=== PATIENT | male | born 1930 | race Hispanic/Latino ===

== ENCOUNTER 2018-03-22 13:21 | Emergency (ER) | payer MEDICARE, SELFPAY ==
[2018-03-22 13:29] VITALS: BP 125/60; PULSE 62; TEMP 97.4; O2SAT 99
[2018-03-22 13:33] VITALS: BMI 19.7
[2018-03-22] MEDS ORDERED: TDAP Vaccine 0.5 mL Syr IM ONE (14:19)
--- NOTE | 2018-03-22 14:25 | ED PDOC ---
Arrival/HPI - General Chief Complaint: Trauma Time Seen by Provider: 03/22/18 14:18 Historian: Patient - History of Present Illness Narrative History of Present Illness (Text): 03/22/18 14:18 This 87 yo male with pmh hypothyroidism, htn, dm, presents to this ED for head trauma evaluation x [employer]ELOP[employer]IST. Patient stated he was watering his plants at home, when he tripped and fell down. Patient stated he hit his head. Patient denies LOC, dizziness, syncope, sob, cp, abdominal pain, neck pain, or abnormal gait. Last tetanus is UKN. Time/Duration: Other (see hpi) Context: Home Past Medical History - Provider Review Nursing Documentation Reviewed: Yes - Infectious Disease Hx of Infectious Diseases: None - Tetanus Immunization Tetanus Immunization: Up to Date - Cardiac Hx Hypertension: Yes Hx Pacemaker: No - Pulmonary Hx Respiratory Disorders: No - Neurological Hx Paralysis: No - HEENT Hx HEENT Disorder: No - Renal Hx Renal Disorder: No - Endocrine/Metabolic Hx Endocrine Disorders: No Hx Diabetes Mellitus Type 2: Yes - Hematological/Oncological Hx Blood Disorders: No - Integumentary Hx Dermatological Disorder: No - Musculoskeletal/Rheumatological Hx Musculoskeletal Disorders: No - Gastrointestinal Hx Gastrointestinal Disorders: No - Genitourinary/Gynecological Hx Genitourinary Disorders: No - Psychiatric Hx Depression: No Hx Emotional Abuse: No Hx Physical Abuse: No Hx Substance Use: No - Surgical History Hx Inguinal Hernia Repair: Yes - Anesthesia Hx Anesthesia Reactions: No - Suicidal Assessment Feels Threatened In Home Enviroment: No Family/Social History - Physician Review Nursing Documentation Reviewed: Yes Family/Social History: Other (noncontributory) Smoking Status: Former Smoker Hx Alcohol Use: Yes (wine in evening) Frequency of alcohol use: Daily Hx Substance Use: No Hx Substance Use Treatment: No Allergies/Home Meds Allergies/Adverse Reactions: Allergies No Known Allergies Allergy (Verified 03/22/18 13:32) Home Medications: Home Meds Medication Instructions Recorded Confirmed Amlodipine Besylate 5 mg PO DAILY 02/06/13 08/02/16 Cyanocobalamin (Vitamin B-12) 5,000 mcg SL DAILY 02/06/13 08/02/16 [Vitamin B-12] Lisinopril 10 mg PO DAILY 02/06/13 08/02/16 Tamsulosin Hydrochloride 0.4 mg PO DAILY 02/06/13 08/02/16 Levothyroxine [Synthroid] 25 mcg PO DAILY 08/02/16 08/02/16 metFORMIN [glucOPHAGE] 500 mg PO BID 08/02/16 08/02/16 Review of Systems - Review of Systems Constitutional: Normal. absent: Fatigue, Weight Change, Fevers Eyes: Normal ENT: Normal Respiratory: Normal. absent: SOB Cardiovascular: Normal. absent: Chest Pain, Palpitations Gastrointestinal: Normal. absent: Abdominal Pain, Nausea, Vomiting Genitourinary Male: Normal Musculoskeletal: Normal. absent: Back Pain, Neck Pain Skin: Other (left scalp abrasion) Neurological: Normal Endocrine: Normal Hemo/Lymphatic: Normal Psychiatric: Normal Physical Exam Vital Signs Temp Pulse Resp BP Pulse Ox 03/22/18 15:22 19 99 03/22/18 13:28 97.4 F L 62 18 125/60 99 Temperature: Afebrile Blood Pressure: Normal Pulse: Regular Respiratory Rate: Normal Appearance: Positive for: Well-Appearing, Non-Toxic, Comfortable Pain Distress: None Mental Status: Positive for: Alert and Oriented X 3 - Systems Exam Head: Present: Normocephalic, Abrasion (Left parietal scalp abrasion), Other ( no raccoon sign. no turk sign) Pupils: Present: PERRL, Other (no hyphema) Extroacular Muscles: Present: EOMI. No: Entrapment Conjunctiva: Present: Normal Ears: Present: Normal, NORMAL TM, Other (no hemotympanum) Mouth: Present: Moist Mucous Membranes Pharnyx: Present: Normal. No: ERYTHEMA, EXUDATE, TONSILS ENLARGED Nose (External): Present: Atraumatic Nose (Internal): Present: Normal Inspection, No Active Bleeding. No: Septal Hematoma Neck: Present: Normal Range of Motion, Trachea Midline. No: Meningeal Signs, MIDLINE TENDERNESS, Paraspinal Tenderness Respiratory/Chest: Present: Clear to Auscultation, Good Air Exchange. No: Respiratory Distress, Accessory Muscle Use Cardiovascular: Present: Regular Rate and Rhythm, Normal S1, S2. No: Murmurs Abdomen: No: Tenderness, Distention, Peritoneal Signs, Rebound, Guarding Back: Present: Normal Inspection. No: CVA Tenderness, Midline Tenderness Upper Extremity: Present: Normal Inspection, Normal ROM. No: Cyanosis, Edema Lower Extremity: Present: Normal Inspection, Normal ROM. No: Edema Neurological: Present: GCS=15, CN II-XII Intact, Speech Normal, Motor Func Grossly Intact, Normal Sensory Function, Normal Cerebellar Funct, Gait Normal, Memory Normal, Other (no neuro focal deficts) Skin: Present: Warm, Dry, Normal Color. No: Rashes Psychiatric: Present: Alert, Oriented x 3, Normal Insight, Normal Concentration Medical Decision Making ED Course and Treatment: 03/22/18 14:[address] Patient [address] to have [address] head done. He said he did not faint. He said he feels fine, has a normal gait and speech. Denies VILLEGAS, or neuro focal deficits. He wants to leave AMA. Leaving Against Medical Advice (AMA): This patient is choosing to leave against medical advice. The EP has personally explained to the pt that choosing to do so may result in permanent bodily harm or . The EP discussed at great length that without further evaluation and monitoring there may be unforeseen circumstances and/or deterioration causing permanent bodily harm or as a result of their choice. The pt verbalized these risks back to the physician in laymans terms. The pt is alert, oriented, and shows the mental capacity to make clear decisions regarding the pts health care at this time. The pt continues to wish to leave again medical advice. In light of the pts decision to leave AMA, follow-up has been recommended and the pt is aware of the importance of following up as instructed. The pt has been advised that they should return to the ED immediately if they change their mind at any time, or if thier condition begins to change or worsen in any way. Re-evaluation Time: 14:55 Reassessment Condition: Re-examined, Unchanged - Medication Orders Current Medication Orders: Discontinued Medications Tetanus/Reduced Diphtheria/Acell Pertussis (Boostrix Vaccine Inj) 0.5 ml IM .ONCE ONE Stop: 03/22/18 14:20 Last Admin: 03/22/18 14:23 Dose: 0.5 ml Immunization Registry Document 03/22/18 14:23 [email or web address] (Rec: 03/22/18 14:23 [email or web address] [id number]) Immunization Registry Consent Date 03/22/18 Disposition/Present on Arrival - Present on Arrival Any Indicators Present on Arrival: No History of DVT/PE: No History of Uncontrolled Diabetes: No Urinary Catheter: No History of Decub. Ulcer: No History Surgical Site Infection Following: None - Disposition Have Diagnosis and Disposition been Completed?: Yes Diagnosis: Scalp abrasion, Acute head trauma Disposition: AGAINST MEDICAL ADVICE Disposition Time: 14:56 Condition: UNKNOWN Additional Instructions: Call private doctor for follow up visit in 1-2 days. take antibiotic as instructed. Return to emergency if new symptoms develop or current symptoms worsen. clean head abrasion with soap and water daily and apply Neosporin ointment. Prescriptions: Cephalexin [Keflex] 500 mg PO QID #20 capsule Referrals: Amor Chery JD, MD [Family Provider] - Follow up with primary Forms: [employer] (Montenegrin)
[2018-03-22 15:24] VITALS: RESP 19
== END 2018-03-22 15:24 | disposition left against medical advice (07) ==
LOC: ED 13:21
DX: S00.01XA Abrasion of scalp, initial encounter (principal); W01.0XXA Fall on same level from slipping, tripping and stumbling without subsequent striking against object, initial encounter; Y93.E9 Activity, other interior property and clothing maintenance; Y92.009 Unspecified place in unspecified non-institutional (private) residence as the place of occurrence of the external cause; Z23 Encounter for immunization

== ENCOUNTER 2018-08-02 21:39 | Inpatient (IN) | payer MEDICARE ==
[2018-08-02 21:52] VITALS: BMI 20.9
[2018-08-02] MEDS ORDERED: Sodium Chloride 0.9% 1,000 ML IV STA ×2 (22:18→22:48)
--- NOTE | 2018-08-02 22:20 | ED PDOC ---
Arrival/HPI - General Chief Complaint: Weakness/Neurological Deficit Time Seen by Provider: 08/02/18 21:41 Historian: Patient - History of Present Illness Narrative History of Present Illness (Text): 08/02/18 22:17 88 year old male, whose past medical history includes hyperlipidemia, hypertension, diabetes, and a hx of daily drinking, who presents to the Emergency department complaining of general weakness. Patient notes difficulty walking. Patient denies intoxication, trauma, injury, chets pain, shortness of breath dizziness, or any other complaints. Time/Duration: Prior to Arrival Symptom Onset: Gradual Symptom Course: Unchanged Activities at Onset: Light Context: Home Past Medical History - Provider Review Nursing Documentation Reviewed: Yes - Infectious Disease Hx of Infectious Diseases: None - Tetanus Immunization Tetanus Immunization: Up to Date - Cardiac Hx Hypertension: Yes Hx Pacemaker: No - Pulmonary Hx Respiratory Disorders: No - Neurological Hx Paralysis: No - HEENT Hx HEENT Disorder: No - Renal Hx Renal Disorder: No - Endocrine/Metabolic Hx Endocrine Disorders: No Hx Diabetes Mellitus Type 2: Yes - Hematological/Oncological Hx Blood Disorders: No - Integumentary Hx Dermatological Disorder: No - Musculoskeletal/Rheumatological Hx Musculoskeletal Disorders: No - Gastrointestinal Hx Gastrointestinal Disorders: No - Genitourinary/Gynecological Hx Genitourinary Disorders: No - Psychiatric Hx Depression: No Hx Emotional Abuse: No Hx Physical Abuse: No Hx Substance Use: No - Surgical History Hx Inguinal Hernia Repair: Yes - Anesthesia Hx Anesthesia Reactions: No - Suicidal Assessment Feels Threatened In Home Enviroment: No Family/Social History - Physician Review Nursing Documentation Reviewed: Yes Family/Social History: Unknown Family HX Smoking Status: Former Smoker Hx Alcohol Use: Yes (wine in evening) Frequency of alcohol use: Few days per week Hx Substance Use: No Hx Substance Use Treatment: No Allergies/Home Meds Allergies/Adverse Reactions: Allergies No Known Allergies Allergy (Verified 03/22/18 13:32) Home Medications: Home Meds Medication Instructions Recorded Confirmed Amlodipine Besylate 5 mg PO DAILY 02/06/13 08/02/16 Cyanocobalamin (Vitamin B-12) 5,000 mcg SL DAILY 02/06/13 08/02/16 [Vitamin B-12] Lisinopril 10 mg PO DAILY 02/06/13 08/02/16 Tamsulosin Hydrochloride 0.4 mg PO DAILY 02/06/13 08/02/16 Levothyroxine [Synthroid] 25 mcg PO DAILY 08/02/16 08/02/16 metFORMIN [glucOPHAGE] 500 mg PO BID 08/02/16 08/02/16 Review of Systems - Physician Review All systems were reviewed & negative as marked: Yes - Review of Systems Constitutional: Fatigue Eyes: Normal ENT: Normal Respiratory: Normal. absent: SOB, Cough Cardiovascular: Normal. absent: Chest Pain Gastrointestinal: Normal. absent: Abdominal Pain Genitourinary Male: Normal. absent: Dysuria, Frequency Musculoskeletal: Normal. absent: Back Pain, Neck Pain Skin: Normal. absent: Rash Neurological: Normal. absent: Headache, Dizziness Endocrine: Normal Hemo/Lymphatic: Normal Psychiatric: Normal Physical Exam Vital Signs Temp Pulse Resp BP Pulse Ox 08/02/18 22:23 99.9 F H 119 H 18 141/87 95 - Systems Exam Head: Present: Atraumatic, Normocephalic Pupils: Present: PERRL Extroacular Muscles: Present: EOMI Conjunctiva: Present: Normal Mouth: Present: Moist Mucous Membranes Neck: Present: Normal Range of Motion Respiratory/Chest: Present: Clear to Auscultation, Good Air Exchange. No: Respiratory Distress, Accessory Muscle Use Cardiovascular: Present: Regular Rate and Rhythm, Normal S1, S2. No: Murmurs Abdomen: No: Tenderness, Distention, Peritoneal Signs Back: Present: Normal Inspection Upper Extremity: Present: Normal Inspection. No: Cyanosis, Edema Lower Extremity: Present: Normal Inspection. No: Edema Neurological: Present: GCS=15, CN II-XII Intact, Speech Normal Skin: Present: Warm, Dry, Normal Color. No: Rashes Psychiatric: Present: Alert, Oriented x 3, Normal Insight, Normal Concentration Medical Decision Making ED Course and Treatment: 08/02/18 22:20 Impression: 88 year old female presents to the emergency department complaining of general weakness. Plan: -- Labs -- EKG -- CXR -- IV fluids -- Troponin -- Reassess and disposition Progress Notes: 08/02/18 22:[address] Abraham elam labs, ekg, cxr and reassess for disposition. - RAD Interpretation Radiology Orders: 08/02/18 22:18 CHEST PORTABLE [RAD] Stat - Medication Orders Current Medication Orders: Sodium Chloride (Sodium Chloride 0.9%) 1,000 mls @ 999 mls/hr IV .Q1H1M STA Stop: 08/02/18 23:18 - Scribe Statement The provider has reviewed the documentation as recorded by the Scribsyd Patrick All medical record entries made by the Scribe were at my direction and personally dictated by me. I have reviewed the chart and agree that the record accurately reflects my personal performance of the history, physical exam, medical decision making, and the department course for this patient. I have also personally directed, reviewed, and agree with the discharge instructions and disposition. Disposition/Present on Arrival - Present on Arrival Any Indicators Present on Arrival: No History of DVT/PE: No History of Uncontrolled Diabetes: No Urinary Catheter: No History of Decub. Ulcer: No History Surgical Site Infection Following: None - Disposition Have Diagnosis and Disposition been Completed?: No Diagnosis: Generalized weakness, Diabetes Disposition Time: 22:36 Condition: GOOD Discharge Instructions (ExitCare): Weakness (ED) Forms: [employer] (Spanish)
[2018-08-02 22:45] LABS: BASO # 0.01 K/mm3 (0.0-2.0); BASO % 0.1 % (0.0-3.0); EOS % 0.2 % (1.5-5.0); GRAN # 8.79 (1.4-6.5); GRAN % 89.9 % (50.0-68.0); LYMPH # 0.7 (1.2-3.4); LYMPH % 6.8 % (22.0-35.0); MEAN CELL VOLUME 87.2 fl (80.0-105.0); MEAN CORPUSCULAR HEMOGLOBIN 29.7 pg (25.0-35.0); MEAN PLATELET VOLUME 9.5 fl (7.0-11.0); MONO # 0.3 (0.1-0.6); RBC 3.37 10^6/uL (3.5-6.1); RED CELL DISTRIBUTION WIDTH 15.1 % (11.5-14.5); VENOUS BLOOD GAS BASE EXCESS 4.7 mmol/L (0.0-2.0); VENOUS BLOOD GAS PO2 43 mm/Hg (30-55); VENOUS BLOOD PH 7.45 (7.32-7.43); WHITE BLOOD COUNT 9.8 10^3/ul (4.5-11.0)
[2018-08-02 22:55] LABS: ALBUMIN 4.2 g/dL (3.0-4.8); ALT/SGPT 20 U/L (7-56); AST/SGOT 37 U/L (17-59); BLOOD UREA NITROGEN 20 mg/dL (7-21); CALCIUM 9.5 mg/dL (8.4-10.5); GFR NON-AFRICAN AMERICAN > 60
[2018-08-02 23:06] LABS: TROPONIN I 0.02 ng/mL
--- NOTE | 2018-08-02 23:09 | ED PDOC ---
Physical Exam Vital Signs Reviewed: Yes Vital Signs Temp Pulse Resp BP Pulse Ox 08/03/18 00:16 102 F H 08/03/18 00:02 102 F H 08/03/18 00:01 112 H 132/50 L 08/02/18 22:23 99.9 F H 119 H 18 141/87 95 Temperature: Febrile Blood Pressure: Normal Pulse: Tachycardic Respiratory Rate: Normal Appearance: Positive for: Well-Appearing, Non-Toxic, Comfortable Pain Distress: None Mental Status: Positive for: Alert and Oriented X 3 - Systems Exam Head: Present: Atraumatic, Normocephalic Pupils: Present: PERRL Extroacular Muscles: Present: EOMI Conjunctiva: Present: Normal Mouth: Present: Moist Mucous Membranes Neck: Present: Normal Range of Motion Respiratory/Chest: Present: Clear to Auscultation, Good Air Exchange. No: Respiratory Distress, Accessory Muscle Use Cardiovascular: Present: Regular Rate and Rhythm, Normal S1, S2. No: Murmurs Abdomen: No: Tenderness, Distention, Peritoneal Signs Back: Present: Normal Inspection Upper Extremity: Present: Normal Inspection. No: Cyanosis, Edema Lower Extremity: Present: Normal Inspection. No: Edema Neurological: Present: GCS=15, CN II-XII Intact, Speech Normal Skin: Present: Warm, Dry, Normal Color. No: Rashes Psychiatric: Present: Alert, Oriented x 3, Normal Insight, Normal Concentration Medical Decision Making ED Course and Treatment: 08/02/18 23:08 Case endorsed to me by Dr. Crabtree, pending labs, ekg, Chest X-ray, and disposition. Patient presents to the emergency department complaining of general weakness today. EKG reviewed, shows atrial fibrillation at 117 bpm with rapid ventricular response. Left axis deviation. 08/03/18 00:44 Chest X-ray reviewed, shows no acute processes. 08/03/18 01:[address] Chery, who is aware and agrees with plan. Requests admission to Dr. Jimenez. Case discussed with Dr. Jimenez, who accepts pt to her service for new onset of atrial fibrillation and fever. Requests consult with Dr. Ayala and Dr. Alexander. - Lab Interpretations Lab Results: 08/02/18 22:42 08/02/18 22:42 Lab Results 08/02/18 23:00: PT 12.4, INR 1.09, APTT 33.1 08/02/18 22:42: pO2 43, VBG pH 7.45 H, VBG pCO2 42.0, VBG HCO3 29.2 H, VBG Total CO2 30.5 H, VBG O2 Sat (Calc) 85.3 H, VBG Base Excess 4.7 H, VBG Potassium 4.6, Sodium 126.0 L, Chloride 92.0 L, Glucose 210 H, Lactate 1.1, FiO2 21.0, Venous Blood Potassium 4.6 08/02/18 22:42: Alcohol, Quantitative < 10 08/02/18 22:42: Sodium 128 L, Chloride 88 L, Potassium 4.6, Carbon Dioxide 25, Anion Gap 19, BUN 20, Creatinine 0.8, Est GFR ( Amer) > 60, Est GFR (Non- Af Amer) > 60, Random Glucose 193 H, Calcium 9.5, Total Bilirubin 0.6, AST 37, ALT 20, Alkaline Phosphatase 153 H, Troponin I 0.02 D, Total Protein 8.2, Albumin 4.2, Globulin 4.0, Albumin/Globulin Ratio 1.0 L 08/02/18 22:42: WBC 9.8 D, RBC 3.37 L, Hgb 10.0 L, Hct 29.4 L, MCV 87.2, MCH 29.7, MCHC 34.0, RDW 15.1 H, Plt Count 223, MPV 9.5, Gran % 89.9 H, Lymph % ( Auto) 6.8 L, [place] % (Auto) 3.0, Eos % (Auto) 0.2 L, Baso % (Auto) 0.1, Gran # 8.79 H, Lymph # (Auto) 0.7 L, [place] # (Auto) 0.3, Eos # (Auto) 0.0, Baso # (Auto ) 0.01 08/02/18 22:40: Urine Color Light yellow, Urine Appearance Clear, Urine pH 7.0, Ur Specific [place] 1.010, Urine Protein Trace H, Urine Glucose (UA) Negative, Urine Ketones Negative, Urine Blood Negative, Urine Nitrate Negative, Urine Bilirubin Negative, Urine Urobilinogen 0.2, Ur Leukocyte Esterase Negative, Urine RBC Pending, Urine WBC Pending - RAD Interpretation Radiology Orders: 08/02/18 22:18 CHEST PORTABLE [RAD] Stat - Medication Orders Current Medication Orders: Ceftriaxone Sodium (Rocephin 1 Gram Ivpb) 1 gm in 100 mls @ 200 mls/hr IV ONCE STA PRN Reason: Protocol Stop: 08/03/18 01:23 Discontinued Medications Acetaminophen (Tylenol 325mg Tab) 650 mg PO STAT STA Stop: 08/03/18 00:10 Last Admin: 08/03/18 00:16 Dose: 650 mg MAR Pain/Vitals Document 08/03/18 00:16 IT (Rec: 08/03/18 00:16 IT [id number]) Vitals Temperature (97.6 F-99.6 F) 102 F Diltiazem HCl (Cardizem) 10 mg IVP STAT STA Stop: 08/02/18 22:49 Last Admin: 08/03/18 00:01 Dose: 10 mg IVP Administration Document 08/03/18 00:01 IT (Rec: 08/03/18 00:01 IT [id number]) Charges for Administration # of IVP Administrations 1 MAR Pulse and Blood Pressure Document 08/03/18 00:01 IT (Rec: 08/03/18 00:01 IT [id number]) Pulse Pulse Rate (60-90 beats/min) 112 Blood Pressure Blood Pressure (100/60-150/90 mm Hg) 132/50 Enoxaparin Sodium (Lovenox) 60 mg SC STAT STA PRN Reason: Protocol Stop: 08/03/18 01:01 Sodium Chloride (Sodium Chloride 0.9%) 1,000 mls @ 999 mls/hr IV .Q1H1M STA Stop: 08/02/18 23:18 Last Admin: 08/03/18 00:01 Dose: 999 mls/hr eMAR Start Stop Document 08/03/18 00:01 IT (Rec: 08/03/18 00:01 IT [id number]) Intravenous Solution Start Date 08/03/18 Start Time 00:01 Sodium Chloride (Sodium Chloride 0.9%) 1,000 mls @ 999 mls/hr IV .Q1H1M STA Stop: 08/02/18 23:48 - Scribe Statement The provider has reviewed the documentation as recorded by the Scribsyd Patrick All medical record entries made by the Scribe were at my direction and personally dictated by me. I have reviewed the chart and agree that the record accurately reflects my personal performance of the history, physical exam, medical decision making, and the department course for this patient. I have also personally directed, reviewed, and agree with the discharge instructions and disposition. Disposition/Present on Arrival - Present on Arrival Any Indicators Present on Arrival: No History of DVT/PE: No History of Uncontrolled Diabetes: No Urinary Catheter: No History of Decub. Ulcer: No History Surgical Site Infection Following: None - Disposition Have Diagnosis and Disposition been Completed?: Yes Diagnosis: Generalized weakness, New onset atrial fibrillation, Fever Disposition: HOSPITALIZED Disposition Time: 01:08 Patient Problems: Current Active Problems Problem Status Onset Fever Acute Generalized weakness Acute New onset atrial fibrillation Acute Condition: GOOD Discharge Instructions (ExitCare): Weakness (ED) Forms: [facility] [employer] (French)
[2018-08-03 00:04] LABS: INR 1.09; PARTIAL THROMBOPLASTIN TIME 33.1 Seconds (25.1-36.5); PROTHROMBIN TIME 12.4 SECONDS (9.4-12.5)
[2018-08-03 00:50] LABS: URINE APPEARANCE CLEAR (CLEAR); URINE BILIRUBIN NEGATIVE (NEGATIVE); URINE BLOOD NEGATIVE (NEGATIVE); URINE COLOR LIGHT YELLOW (YELLOW); URINE GLUCOSE (UA) NEGATIVE (NEGATIVE); URINE LEUKOCYTE ESTERASE NEGATIVE Leu/uL (NEGATIVE); URINE PROTEIN TRACE mg/dL (<30 mg/dL); URINE UROBILINOGEN 0.2 E.U./dL (<1 E.U./dL)
[2018-08-03] MEDS ORDERED: cefTRIAXone 1 gm 1 GM/100 ML BAG IV STA (00:54)
[2018-08-03] MEDS ORDERED: Enoxaparin 60 mg Syringe SC STA (01:00)
[2018-08-03 01:20] LABS: URINE BACTERIA FEW (NEG); URINE RBC 0 - 2 /hpf (0-2); URINE WBC 0 - 2 /hpf (0-6)
[2018-08-03] MEDS ORDERED: Levothyroxine 25 MCG TAB PO SCH (08:32)
--- NOTE | 2018-08-03 09:34 | CARD ---
APPROVED REPORT Date of service: 08/02/2018 EKG Measurement Heart [id number] <Conclusion> Atrial fibrillation with rapid ventricular response Left axis deviation Anteroseptal infarct, age undetermined Abnormal ECG
--- NOTE | 2018-08-03 10:45 | RAD ---
Date of service: 08/02/2018 HISTORY: generalized weakness COMPARISON: 08/02/2016 FINDINGS: LUNGS: No active pulmonary disease. PLEURA: No significant pleural effusion identified, no pneumothorax apparent. CARDIOVASCULAR: Normal. OSSEOUS STRUCTURES: No significant abnormalities. VISUALIZED UPPER ABDOMEN: Normal. OTHER FINDINGS: None. IMPRESSION: No active disease.
[2018-08-03] MEDS: POLYETHYLENE GLYCOL 3350 17 GM/Dose PACKET PO SCH (11:01)
[2018-08-03] MEDS: Piperacillin/Tazobact 3.375 gm 100 ML IVPB SCH ×4 (11:09→23:24)
[2018-08-03] MEDS: Levothyroxine 25 MCG TAB PO SCH (11:12)
[2018-08-03] MEDS ORDERED: Iohexol 240 (50 ml) ONE (11:41)
[2018-08-03] MEDS: levoFLOXacin 750 mg in D5W 150 ML BAG IVPB SCH (11:56)
[2018-08-03] MEDS: Insulin Reg-LOW-Coverage SC SCH ×3 (12:20→21:47)
--- NOTE | 2018-08-03 15:27 | CON ---
DATE: 08/03/2018 LOCATION: The patient is seen earlier today in 270. CHIEF COMPLAINT: The patient is complaining of weakness times several days. HISTORY OF PRESENT ILLNESS: This is an 88-year-old male, who is obviously confused and was admitted through the emergency room with diagnosis of atrial fibrillation. The patient has a past medical history of hyperlipidemia, hypertension, diabetes, admitted with weakness times several days. In the emergency room chart states the patient had denied any intoxication, trauma, injury, chest pain, shortness of breath, dizziness or any other complaints, however. REVIEW OF SYSTEMS: A 12-point review of systems is performed based on the patient's information, nursing chart is available to us. PAST MEDICAL HISTORY: Significant for hypertension, hyperlipidemia, diabetes mellitus, anxiety, alcohol abuse, ex-smoker. PAST SURGICAL HISTORY: Significant for hernia surgery. ALLERGIES: THE PATIENT HAS NO KNOWN ALLERGIES. MEDICATIONS AT HOME: Include metformin and Synthroid. PHYSICAL EXAMINATION: GENERAL: On exam, the patient is in bed, appearing chronically ill, debilitated and weak. VITAL SIGNS: Temperature of 98, T-max is 102; respiratory rate of 16, it was up to 20; heart rate of 89, it was up to 119; blood pressure is 128/60, it was down to 99/50. Saturating at O2 saturation at 95% on room air. HEENT; Examination of HEENT is unremarkable. NECK: Supple. LUNGS: Have decreased breath sounds. HEART: Normal S1, S2. ABDOMEN: Soft, nontender. No organomegaly. No rebound. No guarding. No masses. LABORATORY DATA: Laboratory examination reveals the white count is 9.8, hemoglobin of 10, platelets of 223 Chemistries reveals a BUN of 20, creatinine of 0.8, alk phos is 153, sodium is 128. Urinalysis is unremarkable. Alcohol level is undetectable. Microbiology is pending. The patient had a chest x-ray. No results are available. Review of chest x-ray appears to be unremarkable. The patient had an EKG with atrial fibrillation, rapid ventricular response, left axis deviation, anterior septal infarct and QTc of 443. ASSESSMENT AND PLAN: An 88-year-old male seen earlier today in 270, bed 2 with hyperlipidemia, hypertension, diabetes, anxiety with a temperature of 102, heart rate of 119, unremarkable urinalysis and chest x-ray. #1 is systemic inflammatory response syndrome. The patient does have elevated alkaline phosphatase, elevated random glucose with essentially unremarkable urinalysis. Must rule out gastrointestinal pathology. We will order a CAT scan of the abdomen and pelvis. We will request Dr. Roque on pulmonary consult. We will also order Zosyn and Levaquin. We will order urine for Legionella antigen, blood cultures, urine cultures and sputum cultures, an ultrasound of the common bile duct. Pending panculture results. We will follow closely with you. We will request Dr. Roque on consult. The patient has systemic inflammatory response syndrome, source not clear. Must rule out gastrointestinal pathology versus the lung. we will check on the chest x-ray. We will discuss with Dr. Roque. We will order a CAT scan of the abdomen and pelvis. We will treat with Zosyn and Levaquin. Corey Alexander MD
--- NOTE | 2018-08-03 16:04 | CT ---
Date of service: 08/03/2018 PROCEDURE: CT Abdomen and Pelvis without intravenous contrast HISTORY: gb ds COMPARISON: None. TECHNIQUE: Without contrast.. Contrast dose: Radiation dose: Total exam DLP = 405 mGy-cm. This CT exam was performed using one or more of the following dose reduction techniques: Automated exposure control, adjustment of the mA and/or kV according to patient size, and/or use of iterative reconstruction technique. FINDINGS: LOWER THORAX: There is an infiltrate in the left lower lobe suspicious for pneumonia. LIVER: Unremarkable. No gross lesion or ductal dilatation. GALLBLADDER AND BILE DUCTS: Unremarkable. PANCREAS: Unremarkable. No gross lesion or ductal dilatation. SPLEEN: Unremarkable. ADRENALS: Unremarkable. No mass. KIDNEYS AND URETERS: Unremarkable. No hydronephrosis. No solid mass. VASCULATURE: Unremarkable. No aortic aneurysm. BOWEL: Unremarkable. No obstruction. No gross mural thickening. Mild diverticulosis of the sigmoid colon APPENDIX: Unremarkable. Normal appendix. PERITONEUM: Unremarkable. No free fluid. No free air. LYMPH NODES: Unremarkable. No enlarged lymph nodes. BLADDER: Unremarkable. REPRODUCTIVE: Unremarkable. BONES: No acute fracture. OTHER FINDINGS: None. IMPRESSION: Left lower lobe infiltrate suspicious for pneumonia. No acute intra-abdominal findings
--- NOTE | 2018-08-03 19:39 | CON ---
DATE: 08/03/2018 PULMONARY CONSULTATION REFERRING PHYSICIAN: Kellee Jimenez MD REASON FOR CONSULTATION: Cough, shortness of breath, chronic lung disease. HISTORY OF PRESENT ILLNESS: This is an 88-year-old gentleman with past medical history significant for hypertension, hyperlipidemia, diabetes, history of alcohol abuse, chronic obstructive lung disease, anxiety disorder, brought in the emergency room with leg erythema, multiple skin breakdowns, also has some chest pain and short of breath, been having cough with discolored sputum production. No hemoptysis, hematemesis, hematuria. No diarrhea reported. PAST MEDICAL HISTORY: As per history present illness. ALLERGIES: None known. SOCIAL HISTORY: Ex-smoker, has a history of excessive alcohol use. FAMILY HISTORY: No significant cardiopulmonary disease reported. MEDICATIONS: He is on Colace 100 mg twice a day, Flomax 0.4 mg daily, metformin 100 mg twice a day, insulin coverage, Levaquin 750 mg daily, MiraLax 17 g daily, Norvasc 5 mg daily, Synthroid 25 mcg daily, Zestril 10 mg daily, Zosyn 3.375 g every 6 hours. REVIEW OF SYSTEMS: No headache, no rhinitis. Has a cough, sputum production, palpitation, chest pain. No nausea or vomiting. No diarrhea. Does have erythema of the lower extremity with some area of skin breakdown. Neurologic; awake, alert, and follows simple commands. LABORATORY DATA: Shows hemoglobin 10, hematocrit 29.4, WBC 9.8, and platelets is 223. INR 1.09. PTT 33. VBG showed pH 7.45, pCO2 is 42, O2 of 43, this is on room air. Sodium 128, potassium 4.6, chloride 88, bicarbonate 25. BUN 20, creatinine 0.8. Blood sugar 193. Calcium 9.5. AST 37, ALT 20, alk phos is 153. Troponin 0.02. Albumin 4.2. Procalcitonin is 0.38. Urinalysis shows trace protein, otherwise unremarkable. Alcohol level less than 10. Had a chest x-ray done in the ER, which has no infiltrate or effusion. CAT scan of the abdomen and pelvis done, which shows left lower lobe infiltrate suspicious for pneumonia. No acute intracranial finding. IMPRESSION AND PLAN: Community-acquired pneumonia, chronic obstructive lung disease. There may be component of cellulitis of lower extremity, hypertension, hyperlipidemia, diabetes, anxiety disorder, history of alcohol abuse. Agree with the present management. Continue antibiotics covering anaerobe and atypicals. The patient seen by Dr. Alexander from Infectious Diseases We will add Solu-Medrol 40 mg every 8 hours, inhaled bronchodilators, gastric prophylaxis, DVT prophylaxis. Also may benefit from beta-blockers low-dose. Will need echocardiogram to assess the RV and LV function. Upon discharge, outpatient should have a pulmonary function test, may benefit from sleep study. Thank you and we will follow with you. Beckie Roque MD
[2018-08-03] MEDS: Levalbuterol 0.63 MG/3 ML Inhal Soln UD IH SCH (19:54)
[2018-08-03] MEDS: Ipratropium 0.02% Inhal Soln (0.5 mg/2.5 ml) UD IH SCH (19:54)
[2018-08-03] MEDS: MethylPREDNISolone 40 mg Vial IVP SCH (21:46)
[2018-08-04 00:43] VITALS: RESP 19; TEMP 97.8; O2SAT 96
[2018-08-04] MEDS: Piperacillin/Tazobact 3.375 gm 100 ML IVPB SCH (05:55)
[2018-08-04] MEDS ORDERED: Pantoprazole 40 mg EC Tab PO SCH (06:00)
[2018-08-04] MEDS ORDERED: Levothyroxine 25 MCG TAB PO SCH ×2 (08:00)
[2018-08-04] MEDS: Insulin Reg-LOW-Coverage SC SCH ×2 (08:19→11:47)
[2018-08-04] MEDS: Levalbuterol 0.63 MG/3 ML Inhal Soln UD IH SCH (10:12)
[2018-08-04] MEDS: Ipratropium 0.02% Inhal Soln (0.5 mg/2.5 ml) UD IH SCH (10:12)
[2018-08-04] MEDS: Levothyroxine 25 MCG TAB PO SCH (10:19)
[2018-08-04] MEDS: levoFLOXacin 750 mg in D5W 150 ML BAG IVPB SCH (10:21)
[2018-08-04] MEDS: MethylPREDNISolone 40 mg Vial IVP SCH (10:21)
[2018-08-04 10:24] VITALS: BP 135/69; PULSE 67
[2018-08-04] MEDS: POLYETHYLENE GLYCOL 3350 17 GM/Dose PACKET PO SCH (11:15)
--- NOTE | 2018-08-04 13:32 | PN ---
DATE: 08/04/2018 SUBJECTIVE: The patient is seen earlier this morning, in no acute distress, nontoxic. Awake and alert. His temperature is down. PHYSICAL EXAMINATION: VITAL SIGNS: On exam, temperature is 97, T-max on admission was 102; blood pressure is 130/60; respiratory rate of 18; heart rate of 83. HEENT: Examination of HEENT is unremarkable. NECK: Supple. LUNGS: Have decreased breath sounds. HEART: Normal S1, S2. ABDOMEN: Soft. LABORATORY DATA: Laboratory examination reveals a white count of 9.8, hemoglobin of 10, platelets of 223. Creatinine is 0.8. Urinalysis is noted. Microbiology reveals the blood cultures are negative. Urine cultures are negative. ASSESSMENT AND PLAN: An 88-year-old male with history of hyperlipidemia, hypertension, diabetes, anxiety. Admitted with a temperature of 102, heart rate of 119. #1 is systemic inflammatory response syndrome with negative blood cultures, negative urine cultures and a CAT scan of the abdomen and pelvis, which shows an infiltrate in the left lower lobe suspicious for pneumonia. No intra-abdominal findings, however, which makes the systemic inflammatory response syndrome sepsis. The patient was started on Zosyn. Dr. Roque's note is reviewed. He feels the patient has a community-acquired pneumonia. The chest x-ray is reported as negative. Ultrasound of abdomen is pending. The patient has sepsis with community-acquired pneumonia, on Zosyn and Levaquin. Pending workup results. We will follow closely with you. Corey Alexander MD
--- NOTE | 2018-08-04 17:12 | US ---
Date of service: 08/03/2018 HISTORY: size of CBD COMPARISON: None. TECHNIQUE: Sonographic evaluation of the abdomen. FINDINGS: LIVER: Measures 13.5 x 11.2 cm. Increased echogenicity of the liver parenchyma. No mass. No intrahepatic bile duct dilatation. GALLBLADDER: Unremarkable. No gallstones. COMMON BILE DUCT: Measures 4 mm. No stones. No dilatation. PANCREAS: Unremarkable as visualized. No mass. No ductal dilatation. RIGHT KIDNEY: Measures 10.56 x 4.57 x 5.54cm. Normal echogenicity. No calculus, mass, or hydronephrosis. LEFT KIDNEY: Measures 11.4 x 4.38 x 5.03cm. Normal echogenicity. No calculus, mass, or hydronephrosis. SPLEEN: Normal in size and contour. No mass. 0.87 x 4.27 AORTA: Not visualized IVC: Not visualized OTHER FINDINGS: None. IMPRESSION: Fatty infiltration of the liver
--- NOTE | 2018-08-05 05:43 | DS ---
Patient was admitted on 08/02/2018, left against medical advice on 08/04/2018. Patient was seen and examined on the bedside on 08/04/2018. CHIEF COMPLAINT: Weakness, neurological deficit. HISTORY OF PRESENT ILLNESS: Mr. Awais Herrera is an 88-year-old male with a past medical history of hypercholesterolemia, hypertension, diabetes mellitus, history of daily drinking, came to the Emergency Department complaining of general weakness. Patient notes difficulty of walking. Patient denies intoxication. No trauma. No injury. No chest pain. No dizziness. No fever. No chills. We admitted the patient, chest x-ray was done. Electrocardiography done. CAT scan of abdomen and pelvis done. Abdominal ultrasound was done. Seen by Dr. Alexander, Infectious Disease; Dr. Roque, grip wrapper and patient's Neurology consult was called also. Today, patient decided to leave against medical advice. Daughter was sitting on the bedside also. Urged not to go. Education done, but according to patient, he has to go, he has something to do. PAST MEDICAL HISTORY: Hypertension, diabetes mellitus type 2, inguinal hernia repair. FAMILY HISTORY: Father and mother, noncontributory. HABITS: Former smoker. Alcohol use, yes, wine in every evening. Substance abuse, no. ALLERGIES: THE PATIENT IS NOT ALLERGIC WITH ANY MEDICATIONS. HOME MEDICATIONS: Amlodipine, vitamin B12, lisinopril, tamsulosin, levothyroxine, metformin. REVIEW OF SYSTEMS: Patient was seen and examined on the bedside, sitting on the chair, looking comfortable, a little bit upset with the nursing staff, want to go home against medical advice. Urged to stay, education done and daughter was sitting near the patient on the chair. Patient does not have fever. No headache. No dizziness. No chest pain. No palpitation. PHYSICAL EXAMINATION: VITAL SIGNS: Temperature 97, T-max on admission was 102, blood pressure 130/60, respiratory rate 18, heart rate 83. HEENT: Head: Normocephalic, atraumatic. Eyes: PERRLA. Extraocular muscles intact. Conjunctivae clear. Nose patent. Mucous membrane moist. NECK: Supple. No carotid bruits. No JVD or thyromegaly. CHEST: Bilaterally symmetrical. HEART: S1 and S2 positive. LUNGS: Clear to auscultation. ABDOMEN: Soft. Bowel sounds present. No organomegaly. EXTREMITIES: No edema. No cyanosis. NEUROLOGIC: Patient is awake and alert. Moving all 4 extremities. No focal deficit. LABORATORY DATA: White blood cells 9.8, hemoglobin 10, hematocrit 29.4, platelets 223. Sodium 128, potassium 4.6, BUN 20, creatinine 0.8, glucose 193. ASSESSMENT AND PLAN: Mr. Awais Herrera is an 88-year-old male with hyponatremia, hypochloremia, diabetes mellitus, anemia. He was seen by Dr. Corey Alexander, Infectious Disease. History of hypercholesterolemia, hypertension, anxiety problem, came with temperature of 102; heart rate 119, tachycardia. 1. Systemic inflammatory response syndrome with negative blood culture, negative urine culture and CAT scan of the abdomen and pelvis showed an infiltrate in the left lower lobe, suspicious for pneumonia. Electrogalvanizing Machine Operator is on the case. No intra-abdominal findings; however, which makes systemic inflammatory response syndrome sepsis. Patient was given Zosyn. Reviewed Dr. Alexander's notes, it looks like patient has community-acquired pneumonia. Ultrasound abdomen is done, on Zosyn and Levaquin. CAT scan of the abdomen reviewed. According to Dr. David Lockwood, fatty infiltrates of the liver. According to abdomen and pelvis CAT scan, left lower lobe infiltrate suspicious for pneumonia and no acute intra-abdominal findings. Urged patient to complete the course, but he signed against medical advice. Daughter is aware of that. Gastrointestinal and deep venous thrombosis prophylaxes were given. Patient was informed to follow up with Dr. Amor Chery, he is the primary care physician of the patient and if the fever will continue, come back to the emergency room. Kellee Jimenez MD DEANA
== END 2018-08-04 12:58 | disposition left against medical advice (07) | DRG 194 ==
LOC: ED 21:39 → ERH 08-03 01:10 → 2RSO 08-03 02:36
PROVIDERS: ADMIT Internal Medicine; ATTEND Internal Medicine
PROC: 3E0F7GC Introduction of Other Therapeutic Substance into Respiratory Tract, Via Natural or Artificial Opening (ICD-10-PCS; principal; 2018-08-03)
DX: J18.9 Pneumonia, unspecified organism (principal); E87.1 Hypo-osmolality and hyponatremia; J44.0 Chronic obstructive pulmonary disease with (acute) lower respiratory infection; R65.10 Systemic inflammatory response syndrome (SIRS) of non-infectious origin without acute organ dysfunction; I48.91 Unspecified atrial fibrillation; E11.9 Type 2 diabetes mellitus without complications; E78.00 Pure hypercholesterolemia, unspecified; E87.8 Other disorders of electrolyte and fluid balance, not elsewhere classified; I10 Essential (primary) hypertension; D64.9 Anemia, unspecified; F41.9 Anxiety disorder, unspecified; Z87.891 Personal history of nicotine dependence

== ENCOUNTER 2018-08-30 16:51 | Inpatient (IN) | payer MEDICARE ==
[2018-08-30 17:20] VITALS: BMI 18.2
[2018-08-30] MEDS ORDERED: Vancomycin 1gm in NS 250ml 1 GM/250 ML BAG IVPB STA (17:30)
[2018-08-30] MEDS ORDERED: Sodium Chloride 0.9% 500 ML IV STA (17:31)
--- NOTE | 2018-08-30 17:39 | ED PDOC ---
Arrival/HPI - General Chief Complaint: Weakness/Neurological Deficit Time Seen by Provider: 08/30/18 17:20 Historian: Patient - History of Present Illness Narrative History of Present Illness (Text): 08/30/18 17:41 Patient 88-year-old male with past medical history of diabetes, hypertension, and anemia reports 1 day of shaking chills without fever. Patient reports that he was recently admitted in this hospital for generalized weakness. However he states he signed out AGAINST MEDICAL ADVICE. Otherwise: (-) cough, (-) sore throat, (-) URI symptoms, (-) SOB, (-) chest pain, (-) N/V/D, (-) abdominal pain, (-) flank pain, (-) urinary symptoms, (-) recent travel, (-) sick contacts. PMD Vik Past Medical History - Infectious Disease Hx of Infectious Diseases: None - Tetanus Immunization Tetanus Immunization: Up to Date - Cardiac Hx Cardiac Disorders: Yes Hx Hypertension: Yes Hx Pacemaker: No - Pulmonary Hx Respiratory Disorders: No Other/Comment: ex smoker - Neurological Other/Comment: confused - HEENT Hx HEENT Disorder: No - Renal Hx Renal Disorder: No - Endocrine/Metabolic Hx Endocrine Disorders: Yes Hx Diabetes Mellitus Type 2: Yes - Hematological/Oncological Hx Blood Disorders: No - Integumentary Hx Dermatological Disorder: No - Musculoskeletal/Rheumatological Hx Falls: Yes - Gastrointestinal Hx Gastrointestinal Disorders: No - Genitourinary/Gynecological Hx Genitourinary Disorders: No - Psychiatric Hx Psychophysiologic Disorder: Yes Hx Anxiety: Yes Hx Substance Use: No - Surgical History Hx Inguinal Hernia Repair: Yes - Anesthesia Hx Anesthesia Reactions: No - Suicidal Assessment Feels Threatened In Home Enviroment: No Family/Social History Family/Social History: Unknown Family HX Smoking Status: Former Smoker Hx Alcohol Use: Yes (wine in evening) Hx Substance Use: No Hx Substance Use Treatment: No Allergies/Home Meds Allergies/Adverse Reactions: Allergies No Known Allergies Allergy (Verified 08/30/18 17:11) Home Medications: Home Meds Medication Instructions Recorded Confirmed RX: Amlodipine Besylate 5 mg PO DAILY 02/06/13 08/02/16 RX: Cyanocobalamin (Vitamin B-12) 5,000 mcg SL DAILY 02/06/13 08/02/16 [Vitamin B-12] RX: Lisinopril 10 mg PO DAILY 02/06/13 08/02/16 RX: Tamsulosin Hydrochloride 0.4 mg PO DAILY 02/06/13 08/02/16 Levothyroxine [Synthroid] 25 mcg PO DAILY 08/02/16 08/02/16 metFORMIN [glucOPHAGE] 500 mg PO BID 08/02/16 08/02/16 Review of Systems - Review of Systems Constitutional: Other (+chills). absent: Fevers Respiratory: absent: SOB, Cough Cardiovascular: absent: Chest Pain, Palpitations Gastrointestinal: absent: Abdominal Pain, Diarrhea, Vomiting Genitourinary Male: absent: Dysuria, Frequency Musculoskeletal: absent: Arthralgias, Back Pain, Neck Pain Skin: Rash (+redness to the R leg). absent: Pruritis, Skin Lesions Physical Exam Vital Signs Temp Pulse Resp BP Pulse Ox 08/30/18 17:05 99.1 F 127 H 19 152/103 H 97 Blood Pressure: Hypertensive Pulse: Tachycardic Respiratory Rate: Normal Appearance: Positive for: Well-Appearing, Non-Toxic, Comfortable Pain Distress: Mild Mental Status: Positive for: Alert and Oriented X 3 Finger Stick Blood Glucose: 141 - Systems Exam Head: Present: Atraumatic, Normocephalic Pupils: Present: PERRL Extroacular Muscles: Present: EOMI Conjunctiva: Present: Normal Mouth: Present: Moist Mucous Membranes Neck: Present: Normal Range of Motion. No: Meningeal Signs, Lymphadenopathy Respiratory/Chest: Present: Clear to Auscultation, Good Air Exchange. No: Respiratory Distress, Accessory Muscle Use, Rales, Rhonchi, Tachypneic Cardiovascular: Present: Regular Rate and Rhythm, Normal S1, S2. No: Murmurs Abdomen: No: Tenderness, Distention, Peritoneal Signs Back: Present: Normal Inspection Upper Extremity: Present: Normal Inspection. No: Cyanosis, Edema Lower Extremity: Present: Normal Inspection, NORMAL PULSES, Normal ROM, Neurovascularly Intact, Capillary Refill < 2 s, Other (+erythema, edema, warm to touch to the anterior medial lower R leg from the mid garcia to the ankle). No: Edema, Tenderness, Temperature Abnormalties Neurological: Present: GCS=15, CN II-XII Intact, Speech Normal Skin: Present: Warm, Dry, Normal Color. No: Rashes Psychiatric: Present: Alert, Oriented x 3, Normal Insight, Normal Concentration Medical Decision Making ED Course and Treatment: 08/30/18 17:36 Previous medical records reviewed, patient was admitted for A fib and weakness on 08/02/18. During that last admission, pt was septic, blood/urine cxs (-), CT A/P showed LLL infiltrate, no acute abdominal findings, was tx w/ zosyn. Pt left AMA on 08/06/18. Plan : - IV - IVF bolus - Labs - Cx - blood /urine - CXR - EKG - IV vancomycin - US doppler RLE - VBG - FS - Rectal temp FS : 141 EKG : ST at 116with occasional PVCs, LAD, as read by PA Rectal temp 101.2 given tylenol po. US duplex : (-) DVT, as per tech. Labs reviewed : wbc 11, hgb 10 (stable compared to prior labs), lactate 1.5, glucose 195. Case d/w Dr. Chery, agrees to admit the patient under his service, requesting Dr. Alexander and Dr. Jansen for consult and unasyn q6h IV. On re-evaluation, patient is sleeping comfortably in bed in no acute distress. - Lab Interpretations Lab Results: Lab Results 08/30/18 17:29: POC Glucose (mg/dL) 141 H - RAD Interpretation Radiology Orders: 08/30/18 17:30 CHEST PORTABLE [RAD] Stat 08/30/18 17:32 DUPLEX LOWER EXTRM VEIN RIGHT [US] Stat - Medication Orders Current Medication Orders: Vancomycin HCl (Vancomycin 1gm) 1 gm in 250 mls @ 167 mls/hr IVPB STAT STA; Protocol Stop: 08/30/18 18:59 Sodium Chloride (Sodium Chloride 0.9%) 500 mls @ 500 mls/hr IV .Q1H STA Stop: 08/30/18 18:30 - PA / ELECTRONICS SCALE TESTER / Resident Statement MD/DO has reviewed & agrees with the documentation as recorded. Disposition/Present on Arrival - Present on Arrival Any Indicators Present on Arrival: No History of DVT/PE: No History of Uncontrolled Diabetes: No Urinary Catheter: No History of Decub. Ulcer: No History Surgical Site Infection Following: None - Disposition Have Diagnosis and Disposition been Completed?: Yes Diagnosis: Cellulitis Disposition: HOSPITALIZED Disposition Time: 19:45 Patient Plan: Admission Condition: STABLE
[2018-08-30 19:28] LABS: VENOUS BLOOD GAS BASE EXCESS 2.2 mmol/L (0.0-2.0); VENOUS BLOOD GAS PO2 35 mm/Hg (30-55); VENOUS BLOOD PH 7.39 (7.32-7.43)
[2018-08-30 19:30] LABS: BASO # 0.01 K/mm3 (0.0-2.0); BASO % 0.1 % (0.0-3.0); EOS # 0.1 (0.0-0.7); EOS % 1.1 % (1.5-5.0); GRAN # 8.39 (1.4-6.5); GRAN % 76.2 % (50.0-68.0); HEMOGLOBIN 10.7 g/dL (14.0-18.0); LYMPH # 0.8 (1.2-3.4); LYMPH % 7.4 % (22.0-35.0); MEAN CELL VOLUME 87.3 fl (80.0-105.0); MEAN CORPUSCULAR HGB CONC 33.2 g/dl (31.0-37.0); MEAN PLATELET VOLUME 9.9 fl (7.0-11.0); MONO # 1.7 (0.1-0.6); MONO % 15.2 % (1.0-6.0); RBC 3.69 10^6/uL (3.5-6.1); RED CELL DISTRIBUTION WIDTH 14.5 % (11.5-14.5)
[2018-08-30 19:35] LABS: INR 1.05
[2018-08-30 19:49] LABS: URINE APPEARANCE CLEAR (CLEAR); URINE BILIRUBIN NEGATIVE (NEGATIVE); URINE BLOOD NEGATIVE (NEGATIVE); URINE GLUCOSE (UA) NEGATIVE (NEGATIVE); URINE LEUKOCYTE ESTERASE NEGATIVE Leu/uL (NEGATIVE); URINE PROTEIN NEGATIVE mg/dL (<30 mg/dL); URINE UROBILINOGEN 0.2 E.U./dL (<1 E.U./dL)
[2018-08-30 19:49] LABS: ALB/GLOB RATIO 1.1 (1.1-1.8); ALBUMIN 4.3 g/dL (3.0-4.8); ALT/SGPT 17 U/L (7-56); AST/SGOT 29 U/L (17-59); BLOOD UREA NITROGEN 17 mg/dL (7-21); CALCIUM 9.6 mg/dL (8.4-10.5); GFR NON-AFRICAN AMERICAN > 60
[2018-08-30] MEDS: AMPicillin/Sulbactam 1.5gm 1 GM/100 ML BAG IVPB SCH (21:54)
[2018-08-31] MEDS: Vancomycin 1gm in NS 250ml 1 GM/250 ML BAG IVPB SCH ×2 (05:26→17:36)
[2018-08-31] MEDS: AMPicillin/Sulbactam 1.5gm 1 GM/100 ML BAG IVPB SCH ×3 (05:40→14:02)
--- NOTE | 2018-08-31 08:49 | CARD ---
APPROVED REPORT Date of service: 08/30/2018 EKG Measurement Heart [id number] <Conclusion> Sinus tachycardia with occasional premature ventricular complexes Left axis deviation Anteroseptal infarct, age undetermined Abnormal ECG
--- NOTE | 2018-08-31 10:19 | CP.PCM.CON ---
<Shaniqua Zacarias - Last Filed: 08/31/18 10:25> History of Present Illness - History of Present Illness History of Present Illness: 88 yo male with pmhx of diabetes, hypertension, and anemia reports 1 day of shaking chills without feve seen at bedside for right leg cellulitis. Patient states the legs used to be very swollen, however the swelling has decreased after medications given to him. Patient admits to minimal pain in the leg. patient denies any other pedal complains. Denies seeing any drainage from the leg. Denies n/v/sob. Past Patient History - Infectious Disease Hx of Infectious Diseases: None - Tetanus Immunizations Tetanus Immunization: Up to Date - Past Social History Smoking Status: Former Smoker - CARDIAC Hx Cardiac Disorders: Yes Hx Hypertension: Yes Hx Pacemaker: No - PULMONARY Hx Respiratory Disorders: No Other/Comment: ex smoker - NEUROLOGICAL Other/Comment: confused - HEENT Hx HEENT Problems: No - RENAL Hx Chronic Kidney Disease: No - ENDOCRINE/METABOLIC Hx Endocrine Disorders: Yes Hx Diabetes Mellitus Type 2: Yes - HEMATOLOGICAL/ONCOLOGICAL Hx Blood Disorders: No - INTEGUMENTARY Hx Dermatological Problems: No - MUSCULOSKELETAL/RHEUMATOLOGICAL Hx Falls: Yes - GASTROINTESTINAL Hx Gastrointestinal Disorders: No - GENITOURINARY/GYNECOLOGICAL Hx Genitourinary Disorders: No - PSYCHIATRIC Hx Psychophysiologic Disorder: Yes Hx Anxiety: Yes Hx Substance Use: No - SURGICAL HISTORY Hx Surgeries: Yes - ANESTHESIA Hx Anesthesia Reactions: No Meds Allergies/Adverse Reactions: Allergies Allergy/AdvReac Type Severity Reaction Status Date / Time No Known Allergies Allergy Verified 08/30/18 17:11 - Medications Medications: Current Medications Ampicillin Sodium/Sulbactam Sodium (Unasyn) 1 gm in 100 mls @ 100 mls/hr IVPB Q6H [facility]; Protocol Stop: 09/01/18 07:00 Last Admin: 08/31/18 05:40 Dose: Not Given Vancomycin HCl (Vancomycin 1gm) 1 gm in 250 mls @ 167 mls/hr IVPB Q12H [facility]; Protocol Last Admin: 08/31/18 05:26 Dose: 167 mls/hr Physical Exam - Constitutional Appears: Well, Non-toxic, No Acute Distress - Head Exam Head Exam: ATRAUMATIC, NORMOCEPHALIC - Extremities Exam Additional comments: Right lower extremity exam: Vascular: dp/pt pulses palpable, cft <3 secs x10, TG warm to warm from proximal to distal, erythema noted preitibial and perimalleolar, minimal nonpitting edema noted to the leg. Derm: multiple scabs noted on the medial aspect of the distal 1/3rd leg, no open lesions, no drainage or malodor noted, erythema noted pretibial. Neuro: light touch sensation intact ortho: minimal pain on palpation to the right lower extremity - Neurological Exam Neurological exam: Alert, Oriented x3 - Psychiatric Exam Psychiatric exam: Normal Affect, Normal Mood - Skin Skin Exam: Normal Color Results - Vital Signs Recent Vital Signs: Last Vital Signs Temp 97.4 F L 08/31/18 06:00 Pulse 73 08/31/18 06:00 Resp 18 08/31/18 06:00 BP 123/62 08/31/18 06:00 Pulse Ox 100 08/31/18 06:00 - Labs Result Diagrams: 08/30/18 19:10 08/30/18 19:10 Labs: Laboratory Results - last 24 hr 08/30/18 08/30/18 08/30/18 17:29 19:10 19:10 WBC 11.0 RBC 3.69 Hgb 10.7 L Hct 32.2 L MCV 87.3 MCH 29.0 MCHC 33.2 RDW 14.5 Plt Count 251 MPV 9.9 Gran % 76.2 H Lymph % (Auto) 7.4 L Stephens % (Auto) 15.2 H Eos % (Auto) 1.1 L Baso % (Auto) 0.1 Gran # 8.39 H Lymph # (Auto) 0.8 L Stephens # (Auto) 1.7 H Eos # (Auto) 0.1 Baso # (Auto) 0.01 PT 12.0 INR 1.05 APTT 36.0 pO2 VBG pH VBG pCO2 VBG HCO3 VBG Total CO2 VBG O2 Sat (Calc) VBG Base Excess VBG Potassium Sodium Chloride Glucose Lactate FiO2 Potassium Carbon Dioxide Anion Gap BUN Creatinine Est GFR ( Amer) Est GFR (Non-Af Amer) POC Glucose (mg/dL) 141 H Random Glucose Calcium Phosphorus Magnesium Total Bilirubin AST ALT Alkaline Phosphatase Total Protein Albumin Globulin Albumin/Globulin Ratio Venous Blood Potassium Urine Color Urine Appearance Urine pH Ur Specific [place] Urine Protein Urine Glucose (UA) Urine Ketones Urine Blood Urine Nitrate Urine Bilirubin Urine Urobilinogen Ur Leukocyte Esterase 08/30/18 08/30/18 08/30/18 19:10 19:10 19:45 WBC RBC Hgb Hct MCV MCH MCHC RDW Plt Count MPV Gran % Lymph % (Auto) Stephens % (Auto) Eos % (Auto) Baso % (Auto) Gran # Lymph # (Auto) Stephens # (Auto) Eos # (Auto) Baso # (Auto) PT INR APTT pO2 35 VBG pH 7.39 VBG pCO2 46.0 VBG HCO3 27.8 VBG Total CO2 29.2 H VBG O2 Sat (Calc) 69.2 H VBG Base Excess 2.2 H VBG Potassium 4.3 Sodium 130.0 L 132 Chloride 97.0 L 94 L Glucose 196 H Lactate 1.5 FiO2 21.0 Potassium 4.3 Carbon Dioxide 26 Anion Gap 17 BUN 17 Creatinine 0.9 Est GFR ( Amer) > 60 Est GFR (Non-Af Amer) > 60 POC Glucose (mg/dL) Random Glucose 195 H Calcium 9.6 Phosphorus 3.1 Magnesium 1.3 L Total Bilirubin 0.6 AST 29 ALT 17 Alkaline Phosphatase 203 H D Total Protein 8.2 Albumin 4.3 Globulin 3.9 Albumin/Globulin Ratio 1.1 Venous Blood Potassium 4.3 Urine Color yellow Urine Appearance Clear Urine pH 6.0 Ur Specific [place] 1.010 Urine Protein Negative Urine Glucose (UA) Negative Urine Ketones Negative Urine Blood Negative Urine Nitrate Negative Urine Bilirubin Negative Urine Urobilinogen 0.2 Ur Leukocyte Esterase Negative Assessment & Plan - Assessment and Plan (Free Text) Assessment: 88 yo male seen at bedside for right leg pitting edema and cellulitis; resolving. Plan: 88 yo male seen and evaluated with Dr. Hewitt Patient history, labs, and charts reviewed; absent leukocytosis and afebrile Cultures taken of the right lower extremity wounds Right leg cleansed with saline and dressed with xeroform, ABD, DSD Bactroban ordered and to be used daily with dressing changes Right foot and leg x-rays ordered Id recs appreciated Podiatry to follow the patient while in house Thank you for the consult. <Sky Hewitt - Last Filed: 09/02/18 09:08> Meds - Medications Medications: Current Medications Vancomycin HCl (Vancomycin 1gm) 1 gm in 250 mls @ 167 mls/hr IVPB Q12H [facility]; Protocol Last Admin: 09/02/18 05:22 Dose: 167 mls/hr Ceftriaxone Sodium (Rocephin 1 Gram Ivpb) 1 gm in 100 mls @ 100 mls/hr IVPB DAILY [facility]; Protocol Stop: 09/08/18 16:22 Last Admin: 09/01/18 09:30 Dose: 100 mls/hr Insulin Human Regular (Humulin R Low) 0 units SC ACHS [facility]; Protocol Last Admin: 09/02/18 08:25 Dose: Not Given Mupirocin (Bactroban Ointment) 0 gm TOP BID [facility] Last Admin: 09/01/18 18:32 Dose: 1 applic Results - Vital Signs Recent Vital Signs: Last Vital Signs Temp 97.9 F 09/01/18 22:00 Pulse 69 09/01/18 22:00 Resp 20 09/01/18 22:00 BP 146/68 09/01/18 22:00 Pulse Ox 99 09/01/18 22:00 - Labs Result Diagrams: 08/30/18 19:10 08/30/18 19:10 Labs: Laboratory Results - last 24 hr 09/01/18 09/01/18 09/01/18 01:36 06:27 16:37 POC Glucose (mg/dL) 121 H 122 H 118 H 09/01/18 09/02/18 22:04 06:29 POC Glucose (mg/dL) 128 H 149 H Attending/Attestation - Attestation I have personally seen and examined this patient.: Yes I have fully participated in the care of the patient.: Yes I have reviewed all pertinent clinical information: Yes
--- NOTE | 2018-08-31 11:16 | RAD ---
Date of service: 08/30/2018 HISTORY: Sepsis Patient COMPARISON: 08/02/2018 FINDINGS: LUNGS: No active pulmonary disease. PLEURA: No significant pleural effusion identified, no pneumothorax apparent. CARDIOVASCULAR: Normal. OSSEOUS STRUCTURES: No significant abnormalities. VISUALIZED UPPER ABDOMEN: Normal. OTHER FINDINGS: None. IMPRESSION: No active disease.
[2018-08-31] MEDS: Mupirocin 2% Ointment 15 GM TUBE TOP SCH (17:30)
[2018-08-31] MEDS: Insulin Reg-LOW-Coverage SC SCH ×2 (17:32→22:16)
--- NOTE | 2018-08-31 17:46 | RAD ---
Date of service: 08/31/2018 PROCEDURE: Radiographs of the right tibia and fibula. HISTORY: right leg cellulitis with scabs COMPARISON: None available TECHNIQUE: Frontal and lateral views obtained. FINDINGS: BONES: No fracture or destructive lesion. JOINT SPACES: Unremarkable. OTHER FINDINGS: None. IMPRESSION: Unremarkable radiographs of the right tibia and fibula.
[2018-08-31] MEDS: cefTRIAXone 1 gm 1 GM/100 ML BAG IVPB SCH (17:47)
--- NOTE | 2018-09-01 04:22 | CON ---
DATE OF CONSULTATION: 08/31/2018 The patient is seen in Room 576, Bed 2. CHIEF COMPLAINT: Left leg infection times several days. HISTORY OF PRESENT ILLNESS: This is an 88-year-old male with past medical history significant for hypertension, hyperlipidemia, diabetes mellitus, anxiety, ex-smoker, ex-alcohol user, who has had hernia surgery in the past, who is admitted now with a diagnosis of cellulitis of the leg. The patient denies any fevers, any chills, nausea or vomiting, and no diarrhea or constipation. No dysuria or frequency. PAST MEDICAL HISTORY: Significant for hypertension, diabetes, anxiety, hyperlipidemia. PAST SURGICAL HISTORY: Significant for hernia surgery. ALLERGIES: THE PATIENT HAS NO KNOWN ALLERGIES TO ANY ANTIBIOTICS. REVIEW OF SYSTEMS: A 12-point review of system is performed. MEDICATIONS AT HOME: Amlodipine, vitamin B12, lisinopril, Synthroid, metformin. PHYSICAL EXAMINATION: On exam, the patient is in bed with a temperature of 99, heart rate of 127, respiratory rate of 18, blood pressure is 112/50. The patient's temperature in the emergency room was 101.2 and respiratory rate was 20 and heart rate was up to 127. Examination of HEENT is unremarkable. Neck is supple. Lungs have decreased breath sounds. Heart exam is normal S1, S2. Abdominal examination is soft, nontender. Examination of the left leg reveals the patient to have mild erythema and minimal edema. LABORATORY EXAMINATION: Reveals white count of 11,000, hemoglobin of 10. Coagulation is noted and chemistries are reviewed. Creatinine 0.7, glucose 195, alk phos is 203. Urinalysis is unremarkable. The patient had a chest x-ray, which was negative, and an x-ray of the foot, which the results are not available. He had an EKG, which shows a QTc of 436. Review of imaging from previous admissions revealed the patient had a CT scan of the abdomen and pelvis on 08/03/2018, last month, which showed the gallbladder to be unremarkable, pancreas to be unremarkable, and there was no acute pathology in the abdominal CAT scan; however, an infiltrate was seen at that time. Yesterday's chest x-ray was read as negative, so was the chest x-ray on 08/02/2016. ASSESSMENT AND PLAN: This is an 88-year-old male, hypertensive, hyperlipidemia, diabetes, anxiety, presenting with a fever of 101.2, tachycardia, and #1 is sepsis with the left leg cellulitis. Although the urinalysis is negative, we are concerned about gallbladder because of an elevated alk phos. We will order an abdominal ultrasound and we will treat the patient, pending blood cultures, urine cultures. Although the patient does have cellulitis, I am not convinced that this fever is entirely from that. We will treat the patient with vancomycin and the patient was in the hospital less than a month ago from 08/03/2018 to 08/04/2018, less than 24 hours for atrial fibrillation; however, the patient was in hospital in the past in 2015. We will add ceftriaxone for possible GI and gallbladder coverage in addition to the vancomycin the patient is on. Pending blood cultures, urine cultures, ultrasound of the gallbladder, we will make further recommendations. We will discontinue the Unasyn; however, we will continue with the vancomycin. We will treat with vanco, ceftriaxone pending blood/urine cultures, abdominal ultrasound, and clinical evaluation of the leg. We will follow with you. Must rule out GI source. Corey Alexander MD
[2018-09-01] MEDS: Vancomycin 1gm in NS 250ml 1 GM/250 ML BAG IVPB SCH ×2 (05:57→18:35)
[2018-09-01] MEDS: Mupirocin 2% Ointment 15 GM TUBE TOP SCH ×2 (09:28→18:32)
[2018-09-01] MEDS: Insulin Reg-LOW-Coverage SC SCH ×4 (09:29→23:18)
[2018-09-01] MEDS: cefTRIAXone 1 gm 1 GM/100 ML BAG IVPB SCH (09:30)
--- NOTE | 2018-09-01 10:13 | HP ---
HISTORY OF PRESENT ILLNESS: The patient is an 88-year-old male admitted through the Emergency Department on 08/30/2018 for cellulitis of the right leg. The patient reported some shaking chills without fever, some increased swelling and redness of the right leg over the past few days. No nausea, no vomiting, no diarrhea. No chest pain or shortness of breath. PAST MEDICAL HISTORY: Includes type 2 diabetes mellitus, hypothyroidism, hypertension. PAST SURGICAL HISTORY: Includes BPH status post inguinal hernia repair in the remote past. There is no history of heart disease or cancer. CURRENT MEDICATIONS: Include Synthroid 25 mcg daily, Januvia 50 mg daily, lisinopril 10 mg daily, amlodipine 5 mg daily and Flomax 0.4 mg daily. ALLERGIES: THE PATIENT HAS NO KNOWN DRUG ALLERGIES. FAMILY HISTORY: Noncontributory. SOCIAL HISTORY: The patient has a history of tobacco abuse. Quit about 15 years ago. There is no history of alcohol or drug use. The patient lives alone, received some assistance with IADLs from neighbors, and he is independent with ADLs. REVIEW OF SYSTEMS: Essentially as above. PHYSICAL EXAMINATION: GENERAL: The patient is a mildly cachectic male, in no acute distress. VITAL SIGNS: Blood pressure 123/62, temperature 97.4, pulse 73, respiratory rate 18. HEENT: Head is normocephalic, atraumatic. Pupils equal, round, reactive to light. Extraocular movements intact. NECK: Supple. No thyromegaly. No carotid bruit. No adenopathy. LUNGS: Clear. HEART: Regular rate and rhythm. ABDOMEN: Soft, nontender. Bowel sounds are normoactive. EXTREMITIES: Without cyanosis or clubbing. There is mild swelling and erythema of the right lower extremity above the ankle with mild tenderness to palpation. NEUROLOGIC: The patient is awake and oriented x3 without focal, sensory or motor deficits. SKIN: Warm and dry. LABORATORY DATA: WBCs 11, hemoglobin 10.7, hematocrit 32.2. Sodium 132, potassium 4.3, chloride 94, CO2 26, BUN 76, creatinine 0.9, glucose 195, magnesium 1.3, alkaline phosphatase 203. IMPRESSION: 1. Cellulitis of the right leg. 2. Type 2 diabetes mellitus. 3. Hypertension, hypertensive cardiovascular disease, history of congestive heart failure . 4. Hypothyroidism. 5. Benign prostatic hypertrophy. PLAN: The patient is admitted to the medical-surgical floor. The patient has been empirically started on Unisom 1.5 g IV every 6 hour. Infectious Disease consult has been called with Dr. Alexander. Physical therapy and social work for discharge planning. KADE Hinton MD
--- NOTE | 2018-09-01 12:03 | CP.PCM.PN ---
Subjective - Date & Time of Evaluation Date of Evaluation: 09/01/18 Time of Evaluation: 12:03 - Subjective Subjective: 88 yo male with pmhx of diabetes, hypertension, and anemia reports 1 day of shaking chills without feve seen at bedside for right leg cellulitis. Patient states the legs used to be very swollen, however the swelling has decreased after medications given to him. Patient admits to minimal pain in the leg. patient denies any other pedal complains. Denies seeing any drainage from the leg. Denies n/v/sob. Objective - Vital Signs/Intake and Output Vital Signs (last 24 hours): Temp Pulse Resp BP Pulse Ox 98 F 71 18 144/68 99 09/01/18 07:50 09/01/18 07:50 09/01/18 07:50 09/01/18 07:50 09/01/18 07:50 Intake and Output: 09/01/18 09/01/18 06:59 18:59 Intake Total 120 Balance 120 - Medications Medications: Current Medications Vancomycin HCl (Vancomycin 1gm) 1 gm in 250 mls @ 167 mls/hr IVPB Q12H IRMA; Protocol Last Admin: 09/01/18 05:57 Dose: 167 mls/hr Ceftriaxone Sodium (Rocephin 1 Gram Ivpb) 1 gm in 100 mls @ 100 mls/hr IVPB DAILY IRMA; Protocol Stop: 09/08/18 16:22 Last Admin: 09/01/18 09:30 Dose: 100 mls/hr Insulin Human Regular (Humulin R Low) 0 units SC ACHS IRMA; Protocol Last Admin: 09/01/18 09:29 Dose: Not Given Mupirocin (Bactroban Ointment) 0 gm TOP BID IRMA Last Admin: 09/01/18 09:28 Dose: 1 applic - Labs Labs: 08/30/18 19:10 08/30/18 19:10 PT 12.0 SECONDS (9.4-12.5) 08/30/18 19:10 INR 1.05 08/30/18 19:10 APTT 36.0 Seconds (25.1-36.5) 08/30/18 19:10 - Constitutional Appears: Well, Non-toxic, No Acute Distress - Head Exam Head Exam: ATRAUMATIC, NORMOCEPHALIC - Extremities Exam Additional comments: Right lower extremity exam: Vascular: dp/pt pulses palpable, cft <3 secs x10, TG warm to warm from proximal to distal, erythema noted preitibial and perimalleolar, minimal nonpitting edema noted to the leg. Derm: multiple scabs noted on the medial aspect of the distal 1/3rd leg, no open lesions, no drainage or malodor noted, erythema noted pretibial. Neuro: light touch sensation intact ortho: minimal pain on palpation to the right lower extremity - Neurological Exam Neurological Exam: Alert, Normal Gait - Psychiatric Exam Psychiatric exam: Normal Affect - Skin Skin Exam: Normal Color Assessment and Plan - Assessment and Plan (Free Text) Assessment: 88 yo male seen at bedside for right leg pitting edema and cellulitis; resolving. Plan: 88 yo male seen and evaluated with Dr. Hewitt Patient history, labs, and charts reviewed; absent leukocytosis and afebrile Cultures taken of the right lower extremity wounds Right leg cleansed with saline and dressed with xeroform, ABD, DSD Bactroban ordered and to be used daily with dressing changes Right foot and leg x-rays ordered Id recs appreciated Podiatry to follow the patient while in house Thank you for the consult.
--- NOTE | 2018-09-01 13:34 | US ---
PROCEDURE: Right lower extremity venous US HISTORY: Leg pain and swelling. Evaluate for DVT. PHYSICIAN(S): Rom Light M.D. TECHNIQUE: Duplex sonography and color-flow Doppler with graded compression were used to evaluate the deep venous system of the right lower extremity. The exam is somewhat limited by edema FINDINGS: The visualized deep venous system of the right lower extremity is sonographically normal and compressible. Normal waveforms and augmentation are seen. There is no sonographic evidence for deep venous thrombosis in the visualized segments of the right lower extremity. IMPRESSION: 1. No sonographic evidence for deep venous thrombosis in the visualized segments of the right lower extremity.
--- NOTE | 2018-09-01 15:37 | CP.PCM.PN ---
Subjective - Date & Time of Evaluation Date of Evaluation: 09/01/18 Time of Evaluation: 09:40 - Subjective Subjective: NAD, denies chest pain, no SOB Objective - Vital Signs/Intake and Output Vital Signs (last 24 hours): Temp Pulse Resp BP Pulse Ox 98 F 71 18 144/68 99 09/01/18 07:50 09/01/18 07:50 09/01/18 07:50 09/01/18 07:50 09/01/18 07:50 Intake and Output: 09/01/18 09/01/18 06:59 18:59 Intake Total 120 Balance 120 - Medications Medications: Current Medications Vancomycin HCl (Vancomycin 1gm) 1 gm in 250 mls @ 167 mls/hr IVPB Q12H IRMA; Protocol Last Admin: 09/01/18 05:57 Dose: 167 mls/hr Ceftriaxone Sodium (Rocephin 1 Gram Ivpb) 1 gm in 100 mls @ 100 mls/hr IVPB DAILY IRMA; Protocol Stop: 09/08/18 16:22 Last Admin: 09/01/18 09:30 Dose: 100 mls/hr Insulin Human Regular (Humulin R Low) 0 units SC ACHS IRMA; Protocol Last Admin: 09/01/18 09:29 Dose: Not Given Mupirocin (Bactroban Ointment) 0 gm TOP BID IRMA Last Admin: 09/01/18 09:28 Dose: 1 applic - Labs Labs: 08/30/18 19:10 08/30/18 19:10 PT 12.0 SECONDS (9.4-12.5) 08/30/18 19:10 INR 1.05 08/30/18 19:10 APTT 36.0 Seconds (25.1-36.5) 08/30/18 19:10 - Respiratory Exam Respiratory Exam: Clear to Ausculation Bilateral, NORMAL BREATHING PATTERN - Cardiovascular Exam Cardiovascular Exam: REGULAR RHYTHM - GI/Abdominal Exam GI & Abdominal Exam: Normal Bowel Sounds - Extremities Exam Additional comments: decreased swelling and erythema of the right leg, non-tender - Neurological Exam Neurological Exam: Alert, Awake - Skin Skin Exam: Dry, Warm Assessment and Plan (1) Cellulitis Status: Acute - Assessment and Plan (Free Text) Plan: continue IV Abx, SW for discharge planning
--- NOTE | 2018-09-01 21:47 | PN ---
DATE: 09/01/2018 SUBJECTIVE: The patient is seen earlier today in no acute distress, nontoxic. PHYSICAL EXAMINATION: VITAL SIGNS: Temperature is 98, blood pressure is 140/80, respiratory rate of 18. HEENT: Unremarkable. NECK: Supple. LUNGS: Have decreased breath sounds. HEART: Normal S1, S2. ABDOMEN: Soft, nontender. No organomegaly. No rebound or guarding. EXTREMITIES: Examination of the leg is much improved. LABORATORY EXAMINATION: Reveals a white count 11,000, hemoglobin of 10. Chemistries reveals a BUN of 17, creatinine of 0.9, alk phos is 203. Urinalysis is noted. Microbiology reveals the blood cultures, no growth. Urine cultures, no growth. ASSESSMENT AND PLAN: An 88-year-old male with hypertension, hyperlipidemia, diabetes, anxiety, presenting with a fever, tachycardia. #1 is sepsis with a left leg cellulitis. The patient's temperature appears to have responded and his tachycardia is also responded, currently on ceftriaxone and vancomycin. We will check on the culture results and ultrasound and check on the x-ray of the leg and foot. We will follow with you. Corey Alexander MD
[2018-09-02] MEDS: Vancomycin 1gm in NS 250ml 1 GM/250 ML BAG IVPB SCH (05:22)
[2018-09-02] MEDS: Insulin Reg-LOW-Coverage SC SCH ×2 (08:25→11:52)
[2018-09-02 09:12] VITALS: BP 121/57; PULSE 54; RESP 18; TEMP 98; O2SAT 100
[2018-09-02] MEDS: cefTRIAXone 1 gm 1 GM/100 ML BAG IVPB SCH (09:56)
[2018-09-02] MEDS: Mupirocin 2% Ointment 15 GM TUBE TOP SCH (09:57)
--- NOTE | 2018-09-02 13:11 | US ---
Date of service: 09/01/2018 HISTORY: feer gb ds COMPARISON: None. TECHNIQUE: Sonographic evaluation of the abdomen. FINDINGS: LIVER: Measures 13.5 cm. Diffusely increased echogenicity of the liver parenchyma. Consistent with fatty infiltration. Smooth contour. No mass. No biliary ductal dilatation. Normal hepatopetal portal venous flow. GALLBLADDER: Unremarkable. No gallstones. COMMON BILE DUCT: Measures 7 mm. No stones. No dilatation. PANCREAS: Unremarkable as visualized. No mass. No ductal dilatation. RIGHT KIDNEY: Measures 10.5cm. Normal echogenicity. No calculus, mass, or hydronephrosis. LEFT KIDNEY: Measures 11.8cm. Normal echogenicity. No calculus, mass, or hydronephrosis. SPLEEN: Normal in size and contour. No mass. AORTA: No aneurysmal dilatation. IVC: Unremarkable. OTHER FINDINGS: None. IMPRESSION: Fatty infiltration of the liver. No evidence of cholelithiasis or cholecystitis. Otherwise unremarkable examination.
--- NOTE | 2018-09-02 13:22 | RAD ---
Date of service: 08/31/2018 PROCEDURE: Right Foot Radiographs. HISTORY: right leg cellulitis iwth scabs COMPARISON: None. FINDINGS: BONES: Normal. No fracture. JOINTS: Normal. SOFT TISSUES: Normal. OTHER FINDINGS: None. IMPRESSION: Normal right foot radiographs.
--- NOTE | 2018-09-02 13:53 | CP.PCM.PN ---
<Genesis Crowley - Last Filed: 09/02/18 13:47> Subjective - Date & Time of Evaluation Date of Evaluation: 09/02/18 Time of Evaluation: 13:47 - Subjective Subjective: Podiatry Progress Note for Dr. Hewitt: 88 yo male seen and evaluated for right leg cellulitis. Patient is AAOx3, in NAD, and denies any acute events overnight. Patient states that he is in no pain to his RLE, however he continues to itch it daily. Denies any new pedal complaints. Denies N/V/F/SOB. Objective - Vital Signs/Intake and Output Vital Signs (last 24 hours): Temp Pulse Resp BP Pulse Ox 98 F 54 L 18 121/57 L 100 09/02/18 06:00 09/02/18 06:00 09/02/18 06:00 09/02/18 06:00 09/02/18 06:00 Intake and Output: 09/02/18 09/02/18 06:59 18:59 Intake Total 120 Output Total 700 Balance -580 - Medications Medications: Current Medications Vancomycin HCl (Vancomycin 1gm) 1 gm in 250 mls @ 167 mls/hr IVPB Q12H IRMA; Protocol Last Admin: 09/02/18 05:22 Dose: 167 mls/hr Ceftriaxone Sodium (Rocephin 1 Gram Ivpb) 1 gm in 100 mls @ 100 mls/hr IVPB DAILY IRMA; Protocol Stop: 09/08/18 16:22 Last Admin: 09/02/18 09:56 Dose: 100 mls/hr Insulin Human Regular (Humulin R Low) 0 units SC ACHS IRMA; Protocol Last Admin: 09/02/18 11:52 Dose: 1 unit Mupirocin (Bactroban Ointment) 0 gm TOP BID IRMA Last Admin: 09/02/18 09:57 Dose: 1 applic - Labs Labs: 08/30/18 19:10 08/30/18 19:10 PT 12.0 SECONDS (9.4-12.5) 08/30/18 19:10 INR 1.05 08/30/18 19:10 APTT 36.0 Seconds (25.1-36.5) 08/30/18 19:10 - Constitutional Appears: Well, Non-toxic, No Acute Distress - Head Exam Head Exam: ATRAUMATIC, NORMOCEPHALIC - Extremities Exam Additional comments: RLE focused exam: Vascular: DP/PT pulses palpable, CFT <3 secs to digits, TG warm to warm from proximal to distal, no edema noted to RLE Ortho: no tenderness to palpation of RLE, MMT 4/5, no tenderness upon calf compression Derm: multiple scabs noted on the medial aspect of the distal 1/3rd leg, no open lesions, no drainage or malodor noted, no clinical signs of infection, minimal erythema noted to RLE Neuro: Gross sensation intact - Neurological Exam Neurological Exam: Alert, Awake, Oriented x3 - Psychiatric Exam Psychiatric exam: Normal Affect, Normal Mood Assessment and Plan - Assessment and Plan (Free Text) Assessment: 88 yo male seen at bedside for right leg cellulitis Plan: Patient seen and evaluated with Dr. Hewitt Afebrile, no new labs Right leg cleansed with saline and dressed with xeroform, ABD, DSD; wound stable from podiatry standpoint Hydrocortisone cream ordered for RLE Right foot and leg x-rays ordered; normal R foot radiographs Podiatry to follow the patient while in house Pending D/C patient to follow up with Dr. Hewitt/Inderjit <Sky Hewitt - Last Filed: 09/03/18 12:07> Objective - Vital Signs/Intake and Output Vital Signs (last 24 hours): Temp Pulse Resp BP Pulse Ox 98 F 54 L 18 121/57 L 100 09/02/18 06:00 09/02/18 06:00 09/02/18 06:00 09/02/18 06:00 09/02/18 06:00 - Labs Labs: 08/30/18 19:10 08/30/18 19:10 PT 12.0 SECONDS (9.4-12.5) 08/30/18 19:10 INR 1.05 08/30/18 19:10 APTT 36.0 Seconds (25.1-36.5) 08/30/18 19:10 Attending/Attestation - Attestation I have personally seen and examined this patient.: Yes I have fully participated in the care of the patient.: Yes I have reviewed all pertinent clinical information, including history, physical exam and plan: Yes
[2018-09-02] MEDS ORDERED: Hydrocortisone 1% Cream (30 GM) TOP SCH (18:00)
--- NOTE | 2018-09-07 00:27 | DS ---
HISTORY OF PRESENT ILLNESS: The patient is an 88-year-old male who was admitted through the emergency department on 08/30/2018 for cellulitis of the right leg. The patient was seen in consultation by Infectious Disease and started on intravenous meropenem and vancomycin with improvement. He was discharged to home in stable condition on 09/02/2018. Physical examination and vital signs were normal at that time. He was discharged on the following medications: Augmentin 875 mg twice daily for 5-7 days, Synthroid 25 mcg daily, Januvia 50 mg daily, lisinopril 10 mg daily, amlodipine 5 mg daily. IMPRESSION: 1. Cellulitis of the right leg. 2. Type 2 diabetes mellitus. 3. Hypertension, hypertensive cardiovascular disease, history of congestive heart failure. 4. Hypothyroidism. 5. Benign prostatic hypertrophy. PLAN: The patient was discharged to home on a heart healthy diet. Activities ad libitum. He will be followed up as an outpatient within the next 1-2 weeks. KADE Hinton MD
--- NOTE | 2018-09-21 13:04 | PQF ---
PROVIDER RESPONSE TEXT: No clinical evidence of sepsis REVIEWER QUERY TEXT: Rule Out Sepsis Clarification Rule out Sepsis is documented in the Medical Record. Please clarify whether: -- Patient has sepsis - Please document confirmed, suspected or probable causative organism - Please document confirmed, suspected or probable localized infection - Please clarify if sepsis is related to a device - Please clarify if sepsis was present on admission -- Sepsis was ruled out (include corresponding diagnosis for patient?s clinical picture and treatment ) -- Patient had sepsis which is resolved -- Other, please specify The patient's Clinical Indicators include: Id noted patient presenting with fever and tachycardia-"Sepsis with leg cellulitis", please verify if Sepsis was present on admission. Query created by: Aicha Anton on 09/20/2018 12:03 PM Electronically signed by: Amor Chery MD 09/21/2018 1:01 PM
== END 2018-09-02 14:56 | disposition home or self-care (01) | DRG 603 ==
LOC: ED 16:51 → ERH 19:57 → 5RSO 22:36
PROVIDERS: ADMIT Internal Medicine; ATTEND Internal Medicine
DX: L03.115 Cellulitis of right lower limb (principal); R64 Cachexia; Z68.1 Body mass index [BMI] 19.9 or less, adult; E11.9 Type 2 diabetes mellitus without complications; R00.0 Tachycardia, unspecified; E03.9 Hypothyroidism, unspecified; I50.9 Heart failure, unspecified; I11.0 Hypertensive heart disease with heart failure; N40.0 Benign prostatic hyperplasia without lower urinary tract symptoms; F41.9 Anxiety disorder, unspecified; E78.5 Hyperlipidemia, unspecified; Z87.891 Personal history of nicotine dependence

== ENCOUNTER 2018-11-20 17:20 | Observation (INO) | payer MEDICARE ==
--- NOTE | 2018-11-20 18:03 | ED PDOC ---
Arrival/HPI <Roberth Crabtree - Last Filed: 11/20/18 19:50> - General Historian: Patient, Family (Daughter) - History of Present Illness Narrative History of Present Illness (Text): Patient is an 88 yr old male with PMH diabetes, hypertension, and anemia who presents to [facility] Emergency department with 2 days of chills, rigors, fatigue and redness on the posterior surface of his right calf. He aslo complains of a chronic cough which he has at baseline and is not a new symptom. patient otherwise denies headache, chest pain, shortness of breath, N/V, abdominal pain, dysuria, stool changes and extremity weakness/pain. Patient indicates that he had a similar episode in August of last year for which he was admitted. Pt has moderate hearing loss. 11/20/18 18:02 Time/Duration: Prior to Arrival (2-3 days) Symptom Onset: Gradual Symptom Course: Worsening Severity Level: 8 Associated Symptoms (Text): 11/20/18 18:27 chills, rigors, cough, right lower extremity erythema <Brooklynn Tristan - Last Filed: 11/20/18 20:52> - General Chief Complaint: Fever Time Seen by Provider: 11/20/18 17:42 Past Medical History - Provider Review Nursing Documentation Reviewed: Yes - Infectious Disease Hx of Infectious Diseases: None - Tetanus Immunization Tetanus Immunization: Up to Date - Cardiac Hx Cardiac Disorders: Yes Hx Hypertension: Yes Hx Pacemaker: No - Pulmonary Hx Respiratory Disorders: No Other/Comment: ex smoker - Neurological Other/Comment: confused - HEENT Hx HEENT Disorder: No - Renal Hx Renal Disorder: No - Endocrine/Metabolic Hx Endocrine Disorders: Yes Hx Diabetes Mellitus Type 2: Yes - Hematological/Oncological Hx Blood Disorders: No - Integumentary Hx Dermatological Disorder: No - Musculoskeletal/Rheumatological Hx Falls: Yes - Gastrointestinal Hx Gastrointestinal Disorders: No - Genitourinary/Gynecological Hx Genitourinary Disorders: No - Psychiatric Hx Psychophysiologic Disorder: Yes Hx Anxiety: Yes Hx Substance Use: No - Surgical History Hx Inguinal Hernia Repair: Yes - Anesthesia Hx Anesthesia Reactions: No - Suicidal Assessment Feels Threatened In Home Enviroment: No <Brooklynn Tristan - Last Filed: 11/20/18 20:52> Family/Social History - Physician Review Nursing Documentation Reviewed: Yes Family/Social History: Unknown Family HX Smoking Status: Former Smoker Hx Alcohol Use: No Hx Substance Use: No Hx Substance Use Treatment: No <TristanBrooklynn jackson - Last Filed: 11/20/18 20:52> Allergies/Home Meds <Roberth Crabtree - Last Filed: 11/20/18 19:50> <TristanBrooklynn jackson - Last Filed: 11/20/18 20:52> Allergies/Adverse Reactions: Allergies No Known Allergies Allergy (Verified 08/30/18 17:11) Home Medications: Home Meds Medication Instructions Recorded Confirmed Amlodipine Besylate 5 mg PO DAILY 02/06/13 08/02/16 Cyanocobalamin (Vitamin B-12) 5,000 mcg SL DAILY 02/06/13 08/02/16 [Vitamin B-12] Lisinopril 10 mg PO DAILY 02/06/13 08/02/16 Tamsulosin Hydrochloride 0.4 mg PO DAILY 02/06/13 08/02/16 Levothyroxine [Synthroid] 25 mcg PO DAILY 08/02/16 08/02/16 metFORMIN [glucOPHAGE] 500 mg PO BID 08/02/16 08/02/16 Review of Systems - Physician Review All systems were reviewed & negative as marked: Yes - Review of Systems Constitutional: Fatigue, Fevers Eyes: Normal ENT: Normal Respiratory: Cough. absent: SOB, Sputum, Wheezing Cardiovascular: absent: Chest Pain Gastrointestinal: absent: Abdominal Pain Genitourinary Male: absent: Dysuria Musculoskeletal: absent: Back Pain, Neck Pain, Joint Swelling Skin: Rash (RLE posterior calf) Neurological: absent: Headache, Dizziness Endocrine: absent: Diaphoresis Psychiatric: Normal <TristanBrooklynn jackson - Last Filed: 11/20/18 20:52> Physical Exam Vital Signs Temp Pulse Resp BP Pulse Ox 11/20/18 17:34 100.5 F H 140 H 18 170/75 H 94 L <Roberth Crabtree - Last Filed: 11/20/18 19:50> Vital Signs Reviewed: Yes Vital Signs Temp Pulse Resp BP Pulse Ox 11/20/18 17:34 100.5 F H 140 H 18 170/75 H 94 L Temperature: Febrile (100.5) Blood Pressure: Hypertensive Pulse: Tachycardic Respiratory Rate: Normal Appearance: Positive for: Non-Toxic, Comfortable, Ill-Appearing, Cachectic Pain Distress: None Mental Status: Positive for: Alert and Oriented X 3 - Systems Exam Head: Present: Atraumatic, Normocephalic Pupils: Present: PERRL Extroacular Muscles: Present: EOMI Mouth: Present: Dry Respiratory/Chest: Present: Clear to Auscultation, Good Air Exchange. No: Respiratory Distress, Accessory Muscle Use Cardiovascular: Present: Regular Rate and Rhythm, Normal S1, S2. No: Murmurs Abdomen: No: Tenderness, Distention, Peritoneal Signs Back: Present: Normal Inspection. No: Decubitus Ulcer Upper Extremity: Present: Normal Inspection, NORMAL PULSES, Neurovascularly Intact. No: Cyanosis, Edema Lower Extremity: Present: Tenderness (RLE posterior distal calf), Erythema (RLE posterior distal calf) Neurological: Present: GCS=15, CN II-XII Intact Skin: Present: Warm, Dry, Erythematous (RLE posterior distal). No: Normal Color, Induration, Abscess Psychiatric: Present: Alert, Oriented x 3, Normal Insight, Normal Concentration <Brooklynn Tristan - Last Filed: 11/20/18 20:52> Medical Decision Making ED Course and Treatment: 11/20/18 19:50 Patient Seen with Resident: In agreement with resident note which contains more details about the patient. Patient seen and evaluated with resident. Came up with plan and treatment toget her. Impression: 88 year old male who presents to the emergency department complaining of chills, rigors, fatigue. - Lab Interpretations Lab Results: Lab Results 11/20/18 18:52: pO2 45, VBG pH 7.45 H, VBG pCO2 40.0, VBG HCO3 27.8, VBG Total CO2 29.0 H, VBG O2 Sat (Calc) 85.7 H, VBG Base Excess 3.5 H, VBG Potassium 4.4, Sodium 130.0 L, Chloride 95.0 L, Glucose 249 H, Lactate 1.3, FiO2 21.0, Venous Blood Potassium 4.4 11/20/18 18:19: POC Glucose (mg/dL) 198 H - RAD Interpretation Radiology Orders: 11/20/18 18:06 CHEST PORTABLE [RAD] Stat - Medication Orders Current Medication Orders: Vancomycin HCl (Vancomycin 1gm) 1 gm in 250 mls @ 167 mls/hr IVPB STAT STA; Protocol Stop: 11/20/18 19:35 Cefepime HCl (Maxipime 2gm) 2 gm in 100 mls @ 100 mls/hr IVPB STAT STA; Protocol Stop: 11/20/18 19:19 Last Admin: 11/20/18 19:02 Dose: 100 mls/hr eMAR Start Stop Document 11/20/18 19:02 OCS (Rec: 11/20/18 19:02 OCS [facility]) Intravenous Solution Start Date 11/20/18 Start Time 19:02 End Date 11/20/18 End time 20:02 Total Infusion Time 60 Sodium Chloride (Sodium Chloride 0.9%) 1,000 mls @ 250 mls/hr IV .Q4H STA Stop: 11/20/18 22:31 Last Admin: 11/20/18 19:02 Dose: 250 mls/hr eMAR Start Stop Document 11/20/18 19:02 OCS (Rec: 11/20/18 19:02 OCS [facility]) Intravenous Solution Start Date 11/20/18 Start Time 19:02 <Roberth Crabtree - Last Filed: 11/20/18 19:50> ED Course and Treatment: Impression: pt is likely septic, source unknown, possible RLE erythema vs pulmonary vs urinary code sepsis called 1811 Plan: Blood culture x2 urine culture Urinalysis Chest X-ray NS 1L bolus @250 mls/hr d/t pr previous echo in 2016 showing decreased EF% 11/20/18 18:31 Dr. Chery contacted and agreed to admit patient to his service 11/20/18 19:43 - Lab Interpretations I have reviewed the lab results: Yes Interpretation: Abnormal lab values <Brooklynn Tristan - Last Filed: 11/20/18 20:52> - Scribe Statement The provider has reviewed the documentation as recorded by the Samson Davis Provider Scribe Attestation: All medical record entries made by the Scribe were at my direction and personally dictated by me. I have reviewed the chart and agree that the record accurately reflects my personal performance of the history, physical exam, medical decision making, and the department course for this patient. I have also personally directed, reviewed, and agree with the discharge instructions and disposition. <Roberth Crabtree - Last Filed: 11/20/18 19:50> Disposition/Present on Arrival <Roberth Crabtree - Last Filed: 11/20/18 19:50> - Present on Arrival Any Indicators Present on Arrival: Yes History of DVT/PE: No History of Uncontrolled Diabetes: Yes Urinary Catheter: No History Surgical Site Infection Following: None - Disposition Have Diagnosis and Disposition been Completed?: Yes Disposition Time: 19:45 Patient Plan: Admission <Brooklynn Tristan - Last Filed: 11/20/18 20:52> - Disposition Diagnosis: Fever Disposition: HOSPITALIZED Condition: FAIR
[2018-11-20] MEDS ORDERED: Piperacill/Tazo 4.5gm in NS 4.5 GM/100 ML BAG IVPB STA (18:06)
[2018-11-20] MEDS ORDERED: Vancomycin 1gm in NS 250ml 1 GM/250 ML BAG IVPB STA (18:06)
[2018-11-20 18:11] VITALS: BMI 22.1
[2018-11-20] MEDS ORDERED: Cefepime IV 2 gm in NS 2 GM/100 ML BAG IVPB STA (18:20)
[2018-11-20] MEDS ORDERED: Sodium Chloride 0.9% 1,000 ML IV STA (18:32)
[2018-11-20 18:55] LABS: VENOUS BLOOD GAS BASE EXCESS 3.5 mmol/L (0.0-2.0); VENOUS BLOOD GAS PO2 45 mm/Hg (30-55); VENOUS BLOOD PH 7.45 (7.32-7.43)
[2018-11-20 19:18] LABS: BASO # 0.01 K/mm3 (0.0-2.0); BASO % 0.1 % (0.0-3.0); EOS % 0.1 % (1.5-5.0); GRAN # 10.87 (1.4-6.5); GRAN % 86.5 % (50.0-68.0); HEMOGLOBIN 10.1 g/dL (14.0-18.0); LYMPH % 7.8 % (22.0-35.0); MEAN CELL VOLUME 86.3 fl (80.0-105.0); MEAN CORPUSCULAR HEMOGLOBIN 28.3 pg (25.0-35.0); MEAN CORPUSCULAR HGB CONC 32.8 g/dl (31.0-37.0); MEAN PLATELET VOLUME 10.2 fl (7.0-11.0); MONO # 0.7 (0.1-0.6); MONO % 5.5 % (1.0-6.0); RBC 3.57 10^6/uL (3.5-6.1); RED CELL DISTRIBUTION WIDTH 15.3 % (11.5-14.5); WHITE BLOOD COUNT 12.6 10^3/uL (4.5-11.0)
[2018-11-20 19:24] LABS: INR 1.08; PARTIAL THROMBOPLASTIN TIME 32.6 Seconds (25.1-36.5); PROTHROMBIN TIME 12.3 SECONDS (9.4-12.5)
[2018-11-20 19:32] LABS: URINE BILIRUBIN NEGATIVE (NEGATIVE); URINE BLOOD TRACE-INTACT (NEGATIVE); URINE GLUCOSE (UA) NEGATIVE (NEGATIVE); URINE LEUKOCYTE ESTERASE NEGATIVE Leu/uL (NEGATIVE); URINE PROTEIN TRACE mg/dL (<30 mg/dL); URINE UROBILINOGEN 0.2 E.U./dL (<1 E.U./dL)
[2018-11-20 19:33] LABS: ALB/GLOB RATIO 1.2 (1.1-1.8); ALBUMIN 4.4 g/dL (3.0-4.8); ALT/SGPT 13 U/L (7-56); AST/SGOT 35 U/L (17-59); BLOOD UREA NITROGEN 18 mg/dL (7-21); CALCIUM 9.5 mg/dL (8.4-10.5); GFR NON-AFRICAN AMERICAN > 60
[2018-11-20 19:36] LABS: URINE APPEARANCE CLEAR (CLEAR); URINE COLOR YELLOW (YELLOW)
[2018-11-20 20:23] LABS: URINE RBC 0 - 2 /hpf (0-2)
[2018-11-20 20:24] LABS: URINE BACTERIA FEW /hpf
[2018-11-20 22:08] LABS: VENOUS BLOOD GAS BASE EXCESS 1.5 mmol/L (0.0-2.0); VENOUS BLOOD GAS PO2 183 mm/Hg (30-55); VENOUS BLOOD PH 7.43 (7.32-7.43)
--- NOTE | 2018-11-21 08:42 | RAD ---
Date of service: 11/20/2018 HISTORY: Sepsis Patient COMPARISON: 08/30/2018. FINDINGS: LUNGS: The lungs are hyperinflated and there is peribronchial thickening with chronic changes in both lungs. No focal consolidation. PLEURA: No pleural effusions or pneumothorax. CARDIOVASCULAR: The heart is normal in size. There are aortic atherosclerotic calcifications present. OSSEOUS STRUCTURES: Within normal limits for the patient's age. VISUALIZED UPPER ABDOMEN: Normal. OTHER FINDINGS: None. IMPRESSION: No active pulmonary disease.
--- NOTE | 2018-11-21 09:07 | CARD ---
APPROVED REPORT Date of service: 11/20/2018 EKG Measurement Heart [id number] ME [id number] <Conclusion> Poor data quality, interpretation may be adversely affected Sinus tachycardia with short ME Left Anterior Serg-Block. Anteroseptal infarct, age Old?
[2018-11-21] MEDS ORDERED: Magnesium Sulfate 1 gm in D5W 1 GM/100 ML BAG IVPB ONE (10:00)
[2018-11-21] MEDS ORDERED: Pneumococcal 23-Valent Vaccine IM ONE (12:35)
[2018-11-21 12:39] VITALS: BP 99/53; PULSE 70; RESP 18; TEMP 97.3; O2SAT 94
--- NOTE | 2018-11-21 14:50 | DS ---
HOSPITAL COURSE: The patient is an 88-year-old male admitted through the emergency department with shaking chills and fever. Chest x-ray showed some evidence of bronchiolitis. The patient was given empirically cefepime and vancomycin in the emergency department. He has had an uneventful hospital course and now wishes to go home. He denies any chest pain, shortness of breath. He denies any cough or wheezing. PHYSICAL EXAMINATION: VITAL SIGNS: As per history and physical. IMPRESSION: 1. Acute bronchitis. 2. Type 2 diabetes mellitus. 3. Hypertension, hypertensive cardiovascular disease, history of congestive heart failure. 4. Hypothyroidism. 5. Benign prostatic hyperplasia. PLAN: The patient will be discharged to home today in stable condition. He was given a prescription for a Z-Kali. He will restart his current medications to include Synthroid 25 mcg daily, Januvia 50 mg daily, lisinopril 10 mg daily, amlodipine 5 mg daily and Flomax 0.4 mg daily. He will be maintained on a consistent carbohydrate diet. Activities ad libitum. He will be followed up as an outpatient within the next 1-2 weeks. KADE Hinton MD
== END 2018-11-21 14:45 | disposition home or self-care (01) ==
LOC: ED 17:20 → INTOOBSV 19:45 → ERH 19:45 → 3RNO 22:08
PROVIDERS: ADMIT Internal Medicine; ATTEND Internal Medicine
DX: J20.9 Acute bronchitis, unspecified (principal); E11.9 Type 2 diabetes mellitus without complications; I11.0 Hypertensive heart disease with heart failure; I50.9 Heart failure, unspecified; E03.9 Hypothyroidism, unspecified; N40.0 Benign prostatic hyperplasia without lower urinary tract symptoms; H91.90 Unspecified hearing loss, unspecified ear; J21.9 Acute bronchiolitis, unspecified; Z79.890 Hormone replacement therapy; Z87.891 Personal history of nicotine dependence; Z23 Encounter for immunization
CPT/HCPCS: 71045; 80053; 81001; 82803; 82948; 83735; 84100; 84145; 85025; 85610; 85651; 85730; 86140; 87040; 87086; 87804; 90732; 93005; 96365; 96367; 96375; 97162; 97530; 99285; G0009; G0378; G8978; G8979; J0692; J3475; J7030